=== PATIENT | male | born 1945 | race Caucasian/White ===

== ENCOUNTER 2018-09-18 15:55 | Inpatient (IN) | payer MEDICARE ==
[2018-09-18 16:39] LABS: #Eosinphils 0.1 thou/uL (0.0-0.7); #Lymphocytes 4.1 thou/uL (1.20-3.40); #Monocytes 0.8 thou/uL (0.11-0.59); #Neutrophils 4.2 thou/uL (1.40-6.50); %Basophils 0.4 % (0.0-1.0); %Eosinophils 0.9 % (0.0-10.0); %Lymphocytes 44.5 % (21.0-51.0); %Monocytes 8.7 % (0.0-10.0); %Neutrophils 45.6 % (42.0-75.0); Hemoglobin 18.1 g/dL (14.0-18.0); Mean Corpuscular HGB CONC 32.9 g/dL (32.0-36.0); Mean Corpuscular Volume 88.3 fL (78.0-98.0); Mean Platelet Volume 6.4 fL (7.4-10.4); Platelet Count 205 thou/uL (130-400); RBC Distribution Width 12.9 % (11.5-14.5); Red Blood Cell (RBC) Count 6.25 mill/uL (4.70-6.10); White Blood Cell (WBC) Count 9.2 thou/uL (4.8-10.8)
--- NOTE | 2018-09-18 16:39 | RAD ---
CHEST ONE VIEW: HISTORY: Chest pain. COMPARISON: None. FINDINGS: The cardiac silhouette is magnified by projection. The pulmonary vasculature is unremarkable. The m ediastinum is midline with postoperative changes. Calcified granulomata are consistent with healed g ranulomatous disease. No lobar consolidation or evidence of pneumothorax. Prominent degenerative ch anges, right shoulder. IMPRESSION: Chronic type fracture, as detailed above. No active cardiopulmonary abnormalities demonstrated. POS: [facility]
[2018-09-18] MEDS ORDERED: Adenosine 6 MG/2 ML VIAL ONE ×2 (16:43)
[2018-09-18] MEDS ORDERED: Diltiazem 125 MG/25 ML ONE ×2 (16:53→17:17)
[2018-09-18 17:05] LABS: ALT (SGPT) 21 U/L (8-55); AST (SGOT) 14 U/L (5-34); Albumin 4.5 g/dL (3.4-4.8); Alkaline Phosphatase 57 U/L (40-150); Anion Gap 19 mmol/L (10-20); BUN (Urea Nitrogen) 20 mg/dL (8.4-25.7); Bilirubin, Total 0.6 mg/dL (0.2-1.2); Calc. Creatinine Clearance 0 mL/min (70-130); Carbon Dioxide 21 mmol/L (23-31); Chloride 98 mmol/L (98-107); Estimated GFR-MDRD 61; Globulin 3.5 g/dL (2.4-3.5); Glucose 291 mg/dL (83-110); Lipase 53 U/L (8-78); Potassium 4.4 mmol/L (3.5-5.1); Sodium 134 mmol/L (136-145)
[2018-09-18 20:24] LABS: CKMB 2.1 ng/mL (0-6.6)
[2018-09-18] MEDS ORDERED: Acetaminophen 325 MG TAB PO PRN (21:42)
[2018-09-18] MEDS ORDERED: Ondansetron ODT 4 MG TAB PO PRN (21:42)
[2018-09-18] MEDS ORDERED: Ondansetron PF 4 MG/2 ML Vial IVP PRN (21:42)
[2018-09-19] MEDS ORDERED: Dextrose 50% Abboject 50 ML SYRINGE SLOW IVP PRN ×2 (02:12→15:19)
[2018-09-19] MEDS ORDERED: HumaLOG 300 UNITS/3 ML VIAL SC PRN (02:12)
[2018-09-19] MEDS ORDERED: Dextrose 5% in Water 1,000 ML IV PRN ×2 (02:12→15:19)
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
[2018-09-19] MEDS ORDERED: Diltiazem 125 MG/25 ML ONE (03:15)
[2018-09-19 04:11] LABS: #Basophils 0.1 thou/uL (0.0-0.2); #Eosinphils 0.1 thou/uL (0.0-0.7); #Lymphocytes 3.5 thou/uL (1.20-3.40); #Monocytes 0.9 thou/uL (0.11-0.59); #Neutrophils 3.8 thou/uL (1.40-6.50); %Eosinophils 0.9 % (0.0-10.0); %Lymphocytes 41.7 % (21.0-51.0); %Monocytes 10.3 % (0.0-10.0); %Neutrophils 46.1 % (42.0-75.0); Hemoglobin 16.8 g/dL (14.0-18.0); Mean Corpuscular Hemoglobin 29.2 pg (27.0-31.0); Mean Corpuscular Volume 88.4 fL (78.0-98.0); Mean Platelet Volume 6.5 fL (7.4-10.4); Platelet Count 202 thou/uL (130-400); RBC Distribution Width 12.9 % (11.5-14.5); Red Blood Cell (RBC) Count 5.75 mill/uL (4.70-6.10); White Blood Cell (WBC) Count 8.3 thou/uL (4.8-10.8)
[2018-09-19 04:27] LABS: Anion Gap 16 mmol/L (10-20); BUN (Urea Nitrogen) 19 mg/dL (8.4-25.7); Calc. Creatinine Clearance 0 mL/min (70-130); Carbon Dioxide 25 mmol/L (23-31); Chloride 99 mmol/L (98-107); Estimated GFR-MDRD 57; Glucose 359 mg/dL (83-110); Potassium 4.6 mmol/L (3.5-5.1); Sodium 135 mmol/L (136-145)
[2018-09-19] MEDS ORDERED: Digoxin 0.5 MG/2 ML AMP ONE (08:04)
[2018-09-19] MEDS ORDERED: Enoxaparin Sodium 40 MG/0.4 ML SYRINGE SC SCH (09:00)
[2018-09-19 09:50] VITALS: BMI 32.8
[2018-09-19] MEDS: Digoxin 0.5 MG/2 ML AMP SLOW IVP SCH ×2 (14:32→20:45)
--- NOTE | 2018-09-19 15:40 | PRG ---
DATE OF SERVICE: 09/19/2018 SUBJECTIVE: The patient is seen and examined at the bedside. He is feeling somewhat better. He still feels like his heart is fibrillating. He has some shortness of breath. OBJECTIVE: VITAL SIGNS: Blood pressure is 130/88, pulse is 117, temperature is 98.0, respiratory rate is 18, O2 saturation is 96% on room air. HEENT: His head is atraumatic and normocephalic. Eyes are PERRLA. Sclerae are nonicteric. Oral mucosa is moist. NECK: Supple. No lymphadenopathy. Thyroid is not palpable. LUNGS: Clear. HEART: S1, S2. Irregularly irregular. No S3. No S4. ABDOMEN: Soft, obese, nontender. Bowel sounds are present. No organomegaly. EXTREMITIES: No clubbing, cyanosis or edema. NEUROLOGIC: He is alert and oriented x4. There is no any motor or sensory deficits present. Cranial nerves are intact. LABORATORY DATA: Showed normal CBC. Sodium of 135, potassium 4.6, chloride 99, CO2 of 25, BUN 19, creatinine 1.24, glucose is 359, calcium 10. Two troponin I's at 0.045 and 0.103. IMPRESSION: 1. New onset atrial fibrillation with rapid ventricular response. The patient is on Cardizem at 12.5 mg/hour drip. I am starting him on digoxin 0.25 mg. He had one dose in the emergency room and will have 3 additional 0.125 mg IV push doses. Cardiology is consulted. I talked to Dr. Church personally. He is on his way to see the patient. 2. Uncontrolled diabetes mellitus type 2. 3. Hypertensive urgency on presentation, improved. 4. History of coronary artery disease, status post coronary artery bypass graft. PLAN: As I mentioned above, to continue his digoxin. Obtain Cardiology consultation. He does not want to be on any blood thinners. He has some bad experience in the past. He had some nosebleeds. I believe he was on Coumadin and some other anticoagulants before, so we will continue just DVT prophylaxis dose of Lovenox and we will continue his Cardizem drip and continue moderate sliding scale with insulin. Job ID: [id number]
[2018-09-19] MEDS: HumaLOG 300 UNITS/3 ML VIAL SC PRN (17:19)
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
[2018-09-19 19:26] LABS: ALT (SGPT) 18 U/L (8-55); AST (SGOT) 12 U/L (5-34); Albumin 4.1 g/dL (3.4-4.8); Alkaline Phosphatase 48 U/L (40-150); Bilirubin, Direct 0.2 mg/dL (0.1-0.3); Bilirubin, Total 0.8 mg/dL (0.2-1.2); Protein, Total 7.2 g/dL (5.8-8.1)
[2018-09-19] MEDS: Amiodarone 450 MG in Dextrose 5% in Water 250 ML IVPB SCH (19:28)
[2018-09-19] MEDS: Enoxaparin Sodium 120 MG/0.8 ML SYRINGE SC SCH (20:47)
[2018-09-20] MEDS: Digoxin 0.5 MG/2 ML AMP SLOW IVP SCH (02:13)
[2018-09-20] MEDS: Amiodarone 450 MG in Dextrose 5% in Water 250 ML IVPB SCH ×2 (02:58→19:57)
[2018-09-20 06:56] LABS: Cardiac Risk 8.2 (Less than 4.5)
[2018-09-20] MEDS: HumaLOG 300 UNITS/3 ML VIAL SC PRN ×4 (07:57→21:01)
[2018-09-20] MEDS: Enoxaparin Sodium 120 MG/0.8 ML SYRINGE SC SCH ×2 (07:59→20:57)
[2018-09-20 10:29] LABS: Hemoglobin A1c 11.5 % (4.0-6.0)
[2018-09-20] MEDS ORDERED: Insulin Glargine 15 UNITS in Pre-Filled Syringe 1 EACH SC SCH (10:45)
--- NOTE | 2018-09-20 13:23 | PRG ---
DATE OF SERVICE: 09/20/2018 SUBJECTIVE: The patient is seen and examined at the bedside. He is feeling better. He does not have much complaints to offer. OBJECTIVE: VITAL SIGNS: Blood pressure is 150/90, pulse is 84, temperature is 98.2, respiratory rate is 18, O2 saturation is 94% on room air. HEENT: His head is atraumatic and normocephalic. Eyes are PERRLA. Sclerae are nonicteric. Oral mucosa is moist. NECK: Supple. LUNGS: Clear. HEART: S1, S2. Irregularly irregular. No S3. No S4. ABDOMEN: Soft, obese, nontender. Bowel sounds are present. No organomegaly. EXTREMITIES: No clubbing, cyanosis. There is trace edema in both lower extremities. LABORATORY DATA: Labs showed glycemia ranging from 272 to 349. Hemoglobin A1c 11.5, triglycerides 244, cholesterol 230, LDL 153, HDL 28. Echocardiogram results showed LVEF of 60% to 65%, Afib during study, dilated RV with reduced RV systolic function, moderately dilated left atrium, mildly enlarged right atrium size. Mitral annular calcification, mild mitral regurgitation. Calcified aortic valve and reduced excursion. Hemodynamic measurements suggest hade-su-ltcwxtsl aortic valve stenosis, moderate tricuspid regurgitation. Elevated right ventricular systolic pressure estimated at 83% mmHg. IMPRESSION: 1. New onset atrial fibrillation with rapid ventricular response, rate controlled on Cardizem and amiodarone drips. Dr. Bal is seeing the patient. 2. Uncontrolled diabetes mellitus type 2. Hemoglobin A1c came back at more than 11. 3. Noncompliance. 4. Hypertensive urgency on presentation, improved. 5. History of coronary artery disease, status post coronary artery bypass graft. 6. Aortic stenosis. 7. Right ventricular failure of unclear etiology. We will obtain D-dimers and most likely V/Q scan to rule out the chronic thromboembolism and we might obtain Pulmonary consultation with Dr. Akbar who is interrelated special education teacher today. He is started on full dose of Lovenox at 110 mg every 12 hours subcutaneously and I am starting him on 15 units of long-acting insulin Lantus once a day, plus moderate sliding scale. Most likely he will need much for insulin to control his glycemia. He is ranging between 200 and 350 at this point. Job ID: [id number]
[2018-09-20] MEDS: Amiodarone 200 MG TAB PO SCH (20:58)
[2018-09-20] MEDS: Apixaban 5 MG TAB PO SCH (20:59)
[2018-09-20] MEDS: Atorvastatin Calcium 40 MG TAB PO SCH (20:59)
--- NOTE | 2018-09-21 09:42 | RAD ---
PA AND LATERAL CHEST RADIOGRAPH: Date: 09-21-18 History: Chest pain, worse with exertion. This exam was performed to accompany the ventilation perfus ion study. Comparison: 09-18-18 FINDINGS: Post-surgical changes related to CABG are again noted. Cardiac silhouette and pulmonary vasculature a re within normal limits. Again noted is evidence of prior granulomatous disease with scattered calcif ied granulomata seen within the lungs bilaterally. Lungs are otherwise clear. Vascular calcification is seen in the thoracic aorta. Chest is stable when compared to the prior exam. IMPRESSION: Stable chest without evidence of an acute cardiopulmonary process. POS: [facility]
--- NOTE | 2018-09-21 09:55 | NM ---
VENTILATION PERFUSION STUDY: Date: 09-21-18 History: Right heart failure. Chest pain which started on 09-17-18. Chest pain is now worse with exerti on. Radiopharmaceuticals: 8 mCi Xenon 133 gas inhaled and 6.4 mCi Technetium 99 labelled MAA, IV. FINDINGS: Ventilation Study: There is normal uptake and distribution of radiotracer throughout the lungs bilaterally on the ventil ation portion of the study. No ventilation defect is identified. There is normal washout present on w ashout imaging. The perfusion portion of the study demonstrates a large defect seen at the left lung base with subseg mental perfusion defect seen again scattered within the left lung base as well as defects in the late ral left lung base. The set perfusion defects represent ventilation perfusion mismatches and are comp atible with high probability for pulmonary embolus. Accompanying chest radiograph obtained on today's date demonstrates that the lungs are clear. IMPRESSION: High probability for pulmonary embolus. Above findings discussed with Dr. Schwarz on 09-21-18 at 10:34 hours. POS: [facility]
[2018-09-21] MEDS: Insulin Glargine 15 UNITS in Pre-Filled Syringe 1 EACH SC SCH ×2 (10:09→21:23)
[2018-09-21] MEDS: Apixaban 5 MG TAB PO SCH ×2 (10:10→21:24)
[2018-09-21] MEDS: Amiodarone 200 MG TAB PO SCH ×3 (10:11→21:24)
[2018-09-21] MEDS: HumaLOG 300 UNITS/3 ML VIAL SC PRN ×3 (11:59→21:31)
--- NOTE | 2018-09-21 12:12 | PRG ---
DATE OF SERVICE: 09/21/2018 SUBJECTIVE: The patient is seen and examined at the bedside. His sister is present in the room during my visit. He does not have much complaints to offer. OBJECTIVE: VITAL SIGNS: Blood pressure is 140/77, pulse is 89, temperature is 98.2, respiratory rate is 16, and O2 saturation is 97% on room air. HEENT: His head is atraumatic and normocephalic. Sclerae nonicteric. Oral mucosa is moist. NECK: Supple, obese. LUNGS: Clear. HEART: S1 and S2, irregularly irregular. No S3, no S4. ABDOMEN: Soft, nontender, nondistended. Obese. EXTREMITIES: No clubbing, cyanosis, or edema. NEUROLOGIC: No motor or sensory deficits. Cranial nerves are intact. LABORATORY DATA: Glycemia is ranging from 229 to 349. Hemoglobin A1c came back at 11.5 and D-dimers were 3.7. V/Q scan showed high probability for pulmonary embolism. IMPRESSION: 1. New onset atrial fibrillation with rapid ventricular response, rate controlled on Cardizem and amiodarone drips, started on apixaban 5 mg twice a day. 2. Pulmonary embolism. We will increase the dose of apixaban to 10 mg twice a day. 3. Uncontrolled diabetes mellitus type 2 with hemoglobin A1c at 11.5. The patient is started on 15 units of long-acting insulin Lantus along with the sliding scale moderate. 4. Aortic stenosis. 5. Right ventricular failure secondary to most likely pulmonary embolism with elevated D-dimers. V/Q scan was done and it showed pulmonary embolism. Parish Worker is called and he is supposed to have cardioversion done this evening. I am going to increase his insulin from 15 units once a day to 15 units twice a day. Job ID: [id number]
--- NOTE | 2018-09-21 13:08 | CON ---
DATE OF CONSULTATION: HISTORY OF PRESENT ILLNESS: Deandre Perez is a 73-year-old gentleman, who was admitted to the hospital with symptoms of palpitation and shortness of breath. He has some tightness in his chest. He was taking aspirin. Denies any fever or chills. He sees a physician out of [place], [place]. PAST MEDICAL HISTORY: Pertinent for diabetes, SVT previous pulmonary emboli, and DVT. CAD PAST SURGICAL HISTORY: Bypass, right knee surgery done. Then, he has been seen by Cardiology. Echocardiogram shows dilated RV, reduced RV systolic function, EF of 65%. A V/Q scan was ordered, which shows high probability pulmonary emboli. His echo also shows beqt-op-baitlnpn aortic stenosis. He has seen Dr. Owen in office in the past, but he is not come back to follow up. SOCIAL HISTORY: No alcohol or tobacco abuse. 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 HOME MEDICATIONS: Includes: 1. Metformin 500 twice a day. 2. Potassium 10 a day. 3. Aspirin one a day. 4. He is now on a Cardizem drip and Eliquis 10 mg twice a day. REVIEW OF SYSTEMS: Otherwise, 10-point negative. PHYSICAL EXAMINATION: VITAL SIGNS: Sats 97% on room air, respiratory rate 16, pulse 89, temperature 98, and blood pressure 140/77. CHEST: Decreased breath sounds without any wheezing. CARDIAC: Normal S1 and S2. No gallops. ABDOMEN: No masses. IMPRESSION: 1. Bilateral pulmonary emboli. 2. Supraventricular tachycardia. 3. Previous CABG. 4. Obesity. 5. Diabetes. 6. Atrial fibrillation. 7. Noncompliance. LABORATORY DATA: Order ultrasound of his leg. His creatinine is 1.24, on admission 1.17. GFR 57. Probably mild renal dysfunction. PLAN: I agree with Stuart. He is going to require lifelong anticoagulation. I would like to discuss with the patient. He understands. We will follow. This is a consultation note, 70 minutes, 50% direct patient care. Job ID: [id number] [facility]
[2018-09-21] MEDS ORDERED: PROPOFOL 40 ML ONE (13:44)
[2018-09-21] MEDS ORDERED: PROPOFOL 200 MG/20 ML VIAL ONE (14:19)
[2018-09-21] MEDS ORDERED: Lidocaine 1% PF 5 ML VIAL ONE (14:19)
--- NOTE | 2018-09-21 16:30 | PQF ---
STORM II,BESSY DEUTSCH MD [id number] [facility] [id number] CLINICAL DOCUMENTATION IMPROVEMENT CLARIFICATION FORM: ICD-10 Updated PLEASE DO AN ADDENDUM TO THE PROGRESS NOTE WITH ANY DOCUMENTATION UPDATES OR ADDITIONS AND CARRY THROUGH TO DC SUMMARY. THANK YOU. DATE: 09/21/2018 ATTN: DR. DOAN Please exercise your independent, professional judgment in responding to the clarification form. Clinical indicators are provided on the bottom of this form for your review Please check appropriate box(s).... AMI TYPE [ x ] NSTEMI due to Demand Ischemia (VT Type II) [ ] Demand Ischemia without VT [ ] NSTEMI [ ] Other diagnosis [ ] Unable to determine In addition, please specify: Present on Admission (POA): [ ] Yes [ ] No [ ] Unable to determine CLINICAL INDICATORS - SIGNS / SYMPTOMS / LABS Elevated biomarkers (CK-MB, Troponin T or I): 09/18@1931:0.045. 09/18@2217-0.103. EKG changes (ST Elevation, Non ST Elevation, Q waves, new LBB): EKG in ER: SVT and ST-T wave abnormality, consider inferolateral ischemia. Abnormal Echocardiogram: Juarez - Echo shows dilated RV, reduced RV systolic fuction, EF of 65%. Crushing, pressure like chest pain: ER - Palpitations and chest tightness with radiation of pain in his jaw. RISKS Hx Hypertension History of Coronary Artery Disease History of Diabetes History of VT TREATMENTS Cardizem and amlodipine drips Anticoagulation / TPA - Lovenox and Eliquis Continuous cardiac monitoring Cardiac consult Thank you, Guadalupe (This form is maintained as a part of the permanent medical record) 2014 [employer]. All Rights Reserved [email or web address]
--- NOTE | 2018-09-21 17:42 | PQF ---
STORM II,BESSY DEUTSCH MD [id number] [facility] [id number] CLINICAL DOCUMENTATION IMPROVEMENT CLARIFICATION FORM: ICD-10 Updated PLEASE DO AN ADDENDUM TO THE PROGRESS NOTE WITH ANY DOCUMENTATION UPDATES OR ADDITIONS AND CARRY THROUGH TO DC SUMMARY. THANK YOU. DATE: 09/21/2018 ATTN: DR. DOAN Please exercise your independent, professional judgment in responding to the clarification form. Clinical indicators are provided on the bottom of this form for your review Please check appropriate box(s): HEART FAILURE... A. TYPE: [ ] Systolic / HFrEF [ ] Diastolic / HFpEF [ ] Combined Systolic / Diastolic B. ACUITY: [ ] Acute [ ] Acute on Chronic [ ] Chronic [ x ] Other diagnosis ___Right-sided heart failure [ ] Unable to determine In addition, please specify: Present on Admission (POA): [ x ] Yes [ ] No [ ] Unable to determine For continuity of documentation, please document condition throughout progress notes and discharge summary. Thank You. CLINICAL INDICATORS - SIGNS / SYMPTOMS / LABS 09/19-H&P-KEYON: START ON CARDIZEM GTT. ON TELE. 1-AFIB WITH RVR. THIS IS THE FIRST TIME THE PT HAS HAD AFIB. 2-NSTEMI. LIKELY NSTEMI TYPE 2. TROP 0.045 AND 0.103 REPEATED. LIKELY 2/2 TACHYARRHYTHMIA. 3-HYPERTENSIVE URGENCY. 09/20-CHM: RIGHT VENTRICULAR FAILURE OF UNCLEAR ETIOLOGY. WILL GET D-DIMER AND VQ SCAN. 09/21-SCHWAB: ADMITTED FOR PALPITATIONS AND SHORTNESS OF BREATH. ECHO SHOWS DILATED RV, REDUCED RV SYSTOLIC FUNCTION, EF OF 65%. 09/21-CHM: NEW ONSET AFIB WITH RR. PULM EMBOLISM. RIGHT VENTRICULAR FAILURE 2/2 MOST LIKELY PULM EMBOLISM. RISKS History of CAD with Bypass Hypertension TREATMENTS Cardizem and Eliquis Cardiac monitoring / telemetry IV diuretics Cardiology Consult Thank you, Guadalupe (This form is maintained as a part of the permanent medical record) 2014 [employer]. All Rights Reserved Guadalupe Gardner RN, CDIS [phone] [facility]
--- NOTE | 2018-09-21 18:37 | ECHO ---
73-year-old gentleman with paroxysmal atrial fibrillation. DESCRIPTION OF PROCEDURE: The patient was taken to the PACU. The patient was sedated by anesthesiology. A transesophageal pro be was placed into the distal esophagus and stomach. Echocardiographic images were obtained. The tr ansesophageal probe was removed. FINDINGS: 1. Normal left ventricular systolic function. 2. Biatrial enlargement. 3. The aortic valve leaflets are thickened with reduced leaflet excursion suggestive of mild to mode rate aortic stenosis. 4. Mild mitral regurgitation. 5. Mild tricuspid regurgitation. 6. Spontaneous contrast noted in the left atrium and left atrial appendage. 7. No thrombus in atrium or left atrial appendage. 9. Atherosclerotic debris in the descending aorta. IMPRESSION: Spontaneous contrast was noted in the left atrium and left atrial appendage without formed thrombus.
--- NOTE | 2018-09-21 19:50 | ULT ---
ULTRASOUND WITH DOPPLER DUPLEX VENOUS LOWER EXTREMITIES BILATERAL: 09/21/18 HISTORY: 73-year-old male with pulmonary thromboembolism. 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 FINDINGS: There is no DVT in the right lower extremity. In the left lower extremity, there is clot that fills and expands the lumen of the proximal portion o f the femoral vein, and continues through the mid portion of the femoral vein, with very little flow in the lumen. The distal portion of the femoral vein is patent and clear. IMPRESSION: Positive for occlusive or almost occlusive, acute deep venous thrombosis of the proximal and mid port ions of the left femoral vein. SANDRO Saez POS: JIN
[2018-09-21] MEDS: Atorvastatin Calcium 40 MG TAB PO SCH (21:24)
[2018-09-22 05:33] LABS: Hemoglobin 14.9 g/dL (14.0-18.0); Platelet Count 199 thou/uL (130-400)
[2018-09-22] MEDS: Insulin Glargine 15 UNITS in Pre-Filled Syringe 1 EACH SC SCH ×2 (08:33→21:23)
[2018-09-22] MEDS: Apixaban 5 MG TAB PO SCH ×2 (08:34→21:16)
[2018-09-22] MEDS: Amiodarone 200 MG TAB PO SCH ×3 (08:34→21:17)
--- NOTE | 2018-09-22 10:14 | PDOC.PN ---
- Subjective Encounter Start Date: 09/22/18 Encounter Start Time: 10:13 Subjective: Seen and examined with noo new complaint - Objective Resuscitation Status - Order Detail: 09/18/18 21:42 Resuscitation Status Routine Resuscitation Status: FULL: Full Resuscitation Vital Signs & Weight: Vital Signs (12 hours) Temp Pulse Resp BP BP Pulse Ox 09/22/18 07:40 98.1 F 65 15 141/78 H 96 09/22/18 04:00 98.7 F 62 18 141/67 H 95 09/22/18 00:00 61 158/73 H Weight Weight 253 lb 3.2 oz I&O: 09/21/18 09/22/18 09/23/18 06:59 06:59 07:59 Intake Total 2835.4 1177 Output Total 2500 1065 Balance 335.4 112 Result Diagrams: 09/22/18 05:12 09/22/18 05:12 Additional Labs: Accuchecks 09/22/18 09/21/18 09/21/18 06:02 20:26 16:34 POC Glucose 181 H 413 H 217 H 09/21/18 09/21/18 12:40 10:52 POC Glucose 262 H 271 H Phys Exam - Physical Examination Constitutional: NAD HEENT: PERRLA, moist MMs, sclera anicteric, TM's clear Neck: no nodes, no JVD, supple, full ROM Respiratory: no wheezing, no rales, no rhonchi, clear to auscultation bilateral Cardiovascular: RRR, no significant murmur, no rub Gastrointestinal: soft, non-tender, no distention, positive bowel sounds Musculoskeletal: no edema, pulses present Dx/Plan (1) Afib Code(s): I48.91 - UNSPECIFIED ATRIAL FIBRILLATION Status: Acute (2) Diabetes mellitus Code(s): E11.9 - TYPE 2 DIABETES MELLITUS WITHOUT COMPLICATIONS Status: Acute (3) Right heart failure Status: Acute (4) Bilateral pulmonary embolism Code(s): I26.99 - OTHER PULMONARY EMBOLISM WITHOUT ACUTE COR PULMONALE Status : Acute - Plan 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
--- NOTE | 2018-09-22 12:30 | PRG ---
DATE OF SERVICE: 09/22/2018 SUBJECTIVE: This morning said, he is feeling better. Less shortness of breath. His ultrasound of his legs shows acute deep venous thrombosis involving his proximal midportion of his left femoral vein. OBJECTIVE: VITAL SIGNS: Blood pressure 141/78, sats 98% on room air, respiratory rate 15, temperature 98, and pulse 65. CHEST: Decreased breath sounds. No wheezing. CARDIAC: Normal S1 and S2. No gallops. ABDOMEN: No masses. IMPRESSION: Pulmonary embolism, deep venous thrombosis, atrial fibrillation. From pulmonary standpoint of view, he is on Eliquis. He is going to require lifelong anticoagulation. Continue aggressive PT. Job ID: [id number]
[2018-09-22] MEDS: HumaLOG 300 UNITS/3 ML VIAL SC PRN ×2 (13:39→17:09)
--- NOTE | 2018-09-22 17:13 | PDOC.CTH ---
Cardiology Progress Note - Subjective No complaints. No overnight events. - Objective Vital Signs Temp Pulse Resp BP BP Pulse Ox 09/22/18 15:35 98.9 F 67 15 158/70 H 96 09/22/18 11:15 98.0 F 63 16 145/67 H 96 09/22/18 07:40 98.1 F 65 15 141/78 H 96 Weight 253 lb 3.2 oz 09/21/18 09/22/18 09/23/18 06:59 06:59 07:59 Intake Total 2835.4 1177 Output Total 2500 1065 Balance 335.4 112 - Physical Examination General/Neuro: alert & oriented x3 Neck: no JVD present Lungs: CTA Heart: RRR Abdomen: NT/ND Extremities: other: (Trace edema) - Telemetry Telemetry Rhythm: SR - Labs Result Diagrams: 09/22/18 05:12 09/22/18 05:12 Troponin/CKMB CK-MB (CK-2) 2.1 ng/mL (0-6.6) 09/18/18 19:31 Troponin I 0.103 ng/mL (< 0.028) H 09/18/18 22:17 - Assessment/Plan 1. Paroxysmal AF s/p DCCV 2. PE 3. Left femoral DVT 4. CAD s/p CABG x 2010 5. HLD 6. DM-II 7. Noncompliance history 8. History of junctional rhythm (Amio decreased and no further) Stable. Cleared for discharge from my standpoint. Continue Eliquis lifelong. 10mg BID for 7 days and then 5mg BID.
[2018-09-22] MEDS ORDERED: Clopidogrel Bisulfate 75 MG TAB ONE (20:52)
[2018-09-22] MEDS: Atorvastatin Calcium 40 MG TAB PO SCH (21:16)
[2018-09-23] MEDS ORDERED: Losartan 25 MG TAB PO SCH (09:00)
[2018-09-23] MEDS: Amiodarone 200 MG TAB PO SCH ×2 (09:33→15:33)
[2018-09-23] MEDS: Apixaban 5 MG TAB PO SCH (09:33)
[2018-09-23] MEDS: HumaLOG 300 UNITS/3 ML VIAL SC PRN ×2 (09:34→11:58)
[2018-09-23] MEDS: Insulin Glargine 15 UNITS in Pre-Filled Syringe 1 EACH SC SCH (09:34)
[2018-09-23 12:45] VITALS: BP 166/83; TEMP 98.4
--- NOTE | 2018-09-23 12:53 | PRG ---
DATE OF SERVICE: 09/23/2018 SUBJECTIVE: This morning, the patient is awake, alert, and responsive. Less short of breath. He is walking in the halls. OBJECTIVE: VITAL SIGNS: Sats 100% on room air, temperature 98, pulse 80, respiratory rate 20, blood pressure 140/95. CHEST: Decreased breath sounds. No wheezing. CARDIAC: Normal S1, S2. No gallops or masses. ASSESSMENT AND PLAN: Pulmonary embolism, deep venous thrombosis, atrial fibrillation. From pulmonary standpoint of view, he can be discharged home any time on Eliquis. As noted before, he is going to require long-term anticoagulation. Job ID: [id number]
--- NOTE | 2018-09-23 13:34 | PDOC.PN ---
- Subjective Encounter Start Date: 09/23/18 Encounter Start Time: 13:32 Patient seen and examined. No new complaints. No overnight events. feeling good and wants to go home. - Objective Resuscitation Status - Order Detail: 09/18/18 21:42 Resuscitation Status Routine Resuscitation Status: FULL: Full Resuscitation MAR Reviewed: Yes Vital Signs & Weight: Vital Signs (12 hours) Temp Pulse Resp BP BP Pulse Ox 09/23/18 11:15 98.4 F 72 16 166/83 H 97 09/23/18 09:30 100 09/23/18 07:40 98.1 F 81 20 140/95 H 100 09/23/18 03:36 98.3 F 72 18 143/68 H 96 Weight Weight 253 lb 14.4 oz I&O: 09/22/18 09/23/18 09/24/18 05:59 06:59 06:59 Intake Total 240 Output Total Balance 240 Result Diagrams: 09/22/18 05:12 09/22/18 05:12 Additional Labs: Accuchecks 09/23/18 09/23/18 09/22/18 11:21 05:41 20:15 POC Glucose 167 H 162 H 209 H 09/22/18 09/22/18 16:38 11:17 POC Glucose 257 H 285 H Phys Exam - Physical Examination Constitutional: NAD HEENT: sclera anicteric Neck: supple Respiratory: no wheezing, no rales Cardiovascular: no significant murmur Gastrointestinal: soft Musculoskeletal: no edema Neurological: non-focal, moves all 4 limbs Psychiatric: normal affect, A&O x 3 Skin: no rash Dx/Plan (1) Afib Code(s): I48.91 - UNSPECIFIED ATRIAL FIBRILLATION Status: Acute (2) Diabetes mellitus Code(s): E11.9 - TYPE 2 DIABETES MELLITUS WITHOUT COMPLICATIONS Status: Acute (3) Right heart failure Status: Acute (4) Bilateral pulmonary embolism Code(s): I26.99 - OTHER PULMONARY EMBOLISM WITHOUT ACUTE COR PULMONALE Status : Acute (5) Chest pain Code(s): R07.9 - CHEST PAIN, UNSPECIFIED Status: Acute - Plan * . DC home today Counseled on anticoagulation. Fall precautions at home.
--- NOTE | 2018-09-24 05:59 | DIS ---
DATE OF ADMISSION: 09/18/2018 DATE OF DISCHARGE: 09/23/2018 CONSULTS: Jere Bal MD; Kvng Whyte MD, Cardiology; Paul Juarez MD, Pulmonology. PROCEDURES PERFORMED: 1. Transthoracic echocardiogram with an ejection fraction of 60% to 65%, dilated RV and dilated left atrium, elevated right ventricular systolic pressure of 83 mmHg. 2. Transient esophageal echocardiogram by Dr. Arora on 09/21/2018, showed a normal LV systolic function with biatrial enlargement. HOSPITAL COURSE: Please refer to the history and physical for detail. The patient was admitted with chest pain and palpitation, was found to be in atrial fibrillation and had cardioversion done, was started on blood thinner and amiodarone, rate was controlled and patient was feeling better. He was evaluated by Pulmonology and Cardiology and was deemed appropriated for discharge and has been discharged. The patient remained asymptomatic during the admission. DISCHARGE DIAGNOSES: 1. Paroxysmal atrial fibrillation, status post recurrent cardioversion. 2. Pulmonary embolism. 3. Left femoral deep venous thrombosis. 4. Coronary artery disease, status post coronary artery bypass graft x3 in 2010. 5. Hyperlipidemia. 6. Type 2 diabetes. 7. History of junctional rhythm. 8. Noncompliance from history of hypertension. DISCHARGE MEDICATIONS: 1. Metformin 500 mg p.o. b.i.d. 2. Losartan 25 mg p.o. daily. 3. Lipitor 40 mg at bedtime. 4. Eliquis 10 mg p.o. b.i.d. for 7 days and 5 mg p.o. b.i.d. lifelong. 5. Amiodarone 200 mg p.o. t.i.d. ALLERGIES: NO KNOWN DRUG ALLERGIES. CONDITION ON DISCHARGE: Stable. DISPOSITION: Home. DISCHARGE FOLLOWUP: Follow up with his primary care physician in 1 to 2 weeks. The patient was given no prescriptions and was advised to follow up with primary care physician in 1 to 2 weeks. All of the questions were answered. TIME SPENT: Please note that I did spend more than 35 minutes coordinating the discharge care of this patient. Please check my progress note on 09/23/2018 for physical examination during the day of discharge. Job ID: [id number]
--- NOTE | 2018-09-25 09:40 | EKG ---
Test Reason : POST CARDIOVERSION Blood Pressure : / mmHG Vent. Rate : 058 BPM Atrial Rate : 028 BPM P-R Int : 000 ms QRS Dur : 100 ms QT Int : 398 ms P-R-T Axes : 000 069 210 degrees QTc Int : 390 ms Normal sinus rhythm with junctional escape T wave abnormality, consider inferior ischemia T wave abnormality, consider anterolateral ischemia Abnormal ECG Confirmed by LINNETTE COATES ([id number]) on 09/25/2018 9:39:45 AM Referred By: EUGENIE Confirmed By:LINNETTE COATES
== END 2018-09-23 16:18 | disposition home or self-care (01) | DRG 280 ==
LOC: ERS 15:55 → ERHOLD 17:34 → MERGE 17:34 → 2NO 09-19 09:26
PROVIDERS: ADMIT Emergency Medicine; ATTEND Emergency Medicine
PROC: B24BZZ4 Ultrasonography of Heart with Aorta, Transesophageal (ICD-10-PCS; principal; 2018-09-21)
DX: I48.0 Paroxysmal atrial fibrillation (principal); I26.99 Other pulmonary embolism without acute cor pulmonale; I21.A1 Myocardial infarction type 2; I82.412 Acute embolism and thrombosis of left femoral vein; I35.0 Nonrheumatic aortic (valve) stenosis; I16.0 Hypertensive urgency; E11.65 Type 2 diabetes mellitus with hyperglycemia; I25.10 Atherosclerotic heart disease of native coronary artery without angina pectoris; E78.00 Pure hypercholesterolemia, unspecified; I47.1 Supraventricular tachycardia; E66.9 Obesity, unspecified; Z68.33 Body mass index [BMI] 33.0-33.9, adult; Z79.84 Long term (current) use of oral hypoglycemic drugs; Z95.1 Presence of aortocoronary bypass graft; Z79.82 Long term (current) use of aspirin; I11.0 Hypertensive heart disease with heart failure; Z87.891 Personal history of nicotine dependence; I50.811 Acute right heart failure; I25.2 Old myocardial infarction; Z91.19 Patient's noncompliance with other medical treatment and regimen; Z79.01 Long term (current) use of anticoagulants
CPT/HCPCS: 36415; 36416; 71045; 71046; 78582; 80048; 80053; 80061; 80076; 82553; 82565; 83036; 83690; 83735; 84443; 84484; 85014; 85018; 85025; 85049; 85379; 92960; 93005; 93010; 93306; 93312; 93970; 96365; 96366; 96375; 96376; A9540; A9558; J0153; J1160; J1650; J1825; J2001; J2704; J7050; J7070

== ENCOUNTER 2019-03-27 05:57 | Inpatient (IN) | payer MEDICARE ==
[2019-03-27] MEDS ORDERED: Aspirin Chewable 81 MG TAB ONE (06:09)
[2019-03-27] MEDS ORDERED: Lidocaine 1% (PF) 30 ML VIAL ONE (06:18)
[2019-03-27 06:26] LABS: #Basophils 0.1 thou/uL (0.0-0.2); #Eosinphils 0.1 thou/uL (0.0-0.7); #Lymphocytes 3.2 thou/uL (1.20-3.40); #Monocytes 0.5 thou/uL (0.11-0.59); #Neutrophils 3.3 thou/uL (1.40-6.50); %Basophils 0.8 % (0.0-1.0); %Eosinophils 0.8 % (0.0-10.0); %Lymphocytes 45.3 % (21.0-51.0); %Monocytes 7.4 % (0.0-10.0); %Neutrophils 45.7 % (42.0-75.0); Hemoglobin 16.9 g/dL (14.0-18.0); Mean Corpuscular HGB CONC 33.1 g/dL (32.0-36.0); Mean Corpuscular Volume 87.6 fL (78.0-98.0); Mean Platelet Volume 5.9 fL (7.4-10.4); Platelet Count 219 thou/uL (130-400); Red Blood Cell (RBC) Count 5.82 mill/uL (4.70-6.10); White Blood Cell (WBC) Count 7.1 thou/uL (4.8-10.8)
[2019-03-27 06:34] LABS: INR-International Normal Ratio 1.8; PTT 47.9 SEC (22.9-36.1); Prothrombin Time 20.8 SEC (12.0-14.7)
[2019-03-27 06:50] LABS: ALT (SGPT) 13 U/L (8-55); AST (SGOT) 10 U/L (5-34); Albumin 4.7 g/dL (3.4-4.8); Alkaline Phosphatase 36 U/L (40-150); Anion Gap 13 mmol/L (10-20); BUN (Urea Nitrogen) 19 mg/dL (8.4-25.7); Bilirubin, Total 0.9 mg/dL (0.2-1.2); Calc. Creatinine Clearance 0 mL/min (70-130); Carbon Dioxide 30 mmol/L (23-31); Chloride 96 mmol/L (98-107); Estimated GFR-MDRD 52; Globulin 2.9 g/dL (2.4-3.5); Glucose 251 mg/dL (83-110); Potassium 4.2 mmol/L (3.5-5.1); Protein, Total 7.6 g/dL (5.8-8.1); Sodium 135 mmol/L (136-145)
[2019-03-27] MEDS ORDERED: Heparin 10,000 UNITS/1 ML VIAL ONE (07:31)
[2019-03-27] MEDS ORDERED: Atropine Sulfate 1 mg/1 ml Vial ONE (07:31)
[2019-03-27] MEDS ORDERED: Atropine Sulfate 1 mg/10 ml Syringe ONE ×2 (07:32→08:37)
[2019-03-27] MEDS ORDERED: Bivalirudin 250 MG VIAL ONE (07:33)
[2019-03-27] MEDS ORDERED: Aggrastat 12.5 MG/250 ML 250 ML ONE (07:34)
[2019-03-27] MEDS ORDERED: Adenosine 6 MG/2 ML VIAL ONE (08:25)
[2019-03-27] MEDS ORDERED: Verapamil 5 MG/2 ML VIAL ONE (08:25)
[2019-03-27] MEDS ORDERED: Heparin 10,000 UNITS/ 10 ML VIAL ONE (09:00)
--- NOTE | 2019-03-27 09:14 | RAD ---
CHEST 1 VIEW PORTABLE: HISTORY: Chest pain. COMPARISON: 09/21/2018. FINDINGS: Postop midline sternotomy. Old granulomatous disease. No confluent pneumonia, overt edema, or other acute process. IMPRESSION: No acute intrathoracic disease. Old granulomatous disease. POS: [facility]
[2019-03-27] MEDS ORDERED: Morphine 2 MG/ML SYRINGE SLOW IVP PRN (09:40)
[2019-03-27] MEDS ORDERED: HYDROcodone/Acetaminophen 5/325 mg Tablet PO PRN (09:40)
[2019-03-27] MEDS ORDERED: Nitroglycerin 0.4 MG TAB (25 Tab Bottle) SL PRN ×2 (09:40)
[2019-03-27] MEDS ORDERED: Aggrastat 12.5 MG/250 ML 250 ML IVPB SCH (09:45)
[2019-03-27 10:21] LABS: #Lymphocytes 1.5 thou/uL (1.20-3.40); #Monocytes 0.3 thou/uL (0.11-0.59); #Neutrophils 5.6 thou/uL (1.40-6.50); %Basophils 0.6 % (0.0-1.0); %Eosinophils 0.2 % (0.0-10.0); %Lymphocytes 19.9 % (21.0-51.0); %Monocytes 4.5 % (0.0-10.0); %Neutrophils 74.8 % (42.0-75.0); Hemoglobin 16.1 g/dL (14.0-18.0); Mean Corpuscular HGB CONC 34.1 g/dL (32.0-36.0); Mean Corpuscular Hemoglobin 29.4 pg (27.0-31.0); Mean Corpuscular Volume 86.4 fL (78.0-98.0); Mean Platelet Volume 6.1 fL (7.4-10.4); Platelet Count 195 thou/uL (130-400); RBC Distribution Width 12.8 % (11.5-14.5); Red Blood Cell (RBC) Count 5.47 mill/uL (4.70-6.10); White Blood Cell (WBC) Count 7.5 thou/uL (4.8-10.8)
[2019-03-27 10:30] VITALS: BMI 34.7
[2019-03-27] MEDS ORDERED: Iopamidol 370 76% 100 ML VIAL ONE (10:34)
[2019-03-27] MEDS ORDERED: Iopamidol 370 76% 50 ML VIAL FS ONE (10:34)
[2019-03-27] MEDS: Aspirin Chewable 81 MG TAB PO SCH ×2 (10:49→10:50)
[2019-03-27 10:54] LABS: Troponin I 4.716 ng/mL (< 0.028)
--- NOTE | 2019-03-27 11:54 | RAD ---
PORTABLE SUPINE CHEST: Date: 03/27/19 HISTORY: Cardiac device placement. COMPARISON: 03/27/19. FINDINGS: Mild cardiomegaly with postop sternotomy change. Lungs appear clear. A catheter overlies with IVC and right atrium with tip overlying the right ventricle. IMPRESSION: No evidence of acute lung process. Stable chest findings. POS: OFF
[2019-03-27 13:45] LABS: Troponin I 15.534 ng/mL (< 0.028)
[2019-03-27] MEDS ORDERED: Dextrose 5% in Water 1,000 ML IV PRN (14:41)
[2019-03-27] MEDS ORDERED: Dextrose 50% Abboject 50 ML SYRINGE IVP PRN (14:41)
[2019-03-27 17:26] LABS: Troponin I 26.551 ng/mL (< 0.028)
[2019-03-27] MEDS: Ondansetron PF 4 MG/2 ML Vial SLOW IVP PRN ×2 (18:15→22:39)
[2019-03-27] MEDS: TICAGRELOR 90 MG TABLET PO SCH (20:44)
[2019-03-27] MEDS: Insulin Regular 300 UNITS/3 ML VIAL SC PRN (20:49)
[2019-03-27] MEDS ORDERED: TICAGRELOR 90 MG TABLET PO SCH (21:00)
[2019-03-27] MEDS ORDERED: Atorvastatin Calcium 40 MG TAB PO SCH (21:00)
[2019-03-28 04:18] LABS: #Lymphocytes 2.8 thou/uL (1.20-3.40); #Monocytes 0.7 thou/uL (0.11-0.59); #Neutrophils 5.5 thou/uL (1.40-6.50); %Basophils 0.4 % (0.0-1.0); %Eosinophils 0.3 % (0.0-10.0); %Lymphocytes 30.7 % (21.0-51.0); %Monocytes 7.9 % (0.0-10.0); %Neutrophils 60.6 % (42.0-75.0); Hemoglobin 15.9 g/dL (14.0-18.0); Mean Corpuscular HGB CONC 33.5 g/dL (32.0-36.0); Mean Corpuscular Hemoglobin 29.4 pg (27.0-31.0); Mean Corpuscular Volume 87.8 fL (78.0-98.0); Mean Platelet Volume 6.3 fL (7.4-10.4); Platelet Count 187 thou/uL (130-400); RBC Distribution Width 13.1 % (11.5-14.5); Red Blood Cell (RBC) Count 5.39 mill/uL (4.70-6.10); White Blood Cell (WBC) Count 9.1 thou/uL (4.8-10.8)
[2019-03-28 05:34] LABS: Albumin 3.9 g/dL (3.4-4.8)
[2019-03-28 05:35] LABS: Calcium 8.9 mg/dL (7.8-10.44); Chloride 100 mmol/L (98-107); Potassium 3.9 mmol/L (3.5-5.1); Sodium 133 mmol/L (136-145)
[2019-03-28 05:36] LABS: Globulin 2.3 g/dL (2.4-3.5); Glucose 202 mg/dL (83-110); Protein, Total 6.2 g/dL (5.8-8.1); Triglycerides 156 mg/dL (Less than 150)
[2019-03-28 05:37] LABS: Anion Gap 12 mmol/L (10-20); Carbon Dioxide 25 mmol/L (23-31)
[2019-03-28 05:38] LABS: Bilirubin, Total 1.3 mg/dL (0.2-1.2)
[2019-03-28 05:39] LABS: Alkaline Phosphatase 32 U/L (40-150); Calc. Creatinine Clearance 111 mL/min (70-130); Estimated GFR-MDRD 73
[2019-03-28 05:40] LABS: BUN (Urea Nitrogen) 14 mg/dL (8.4-25.7)
[2019-03-28 05:41] LABS: AST (SGOT) 91 U/L (5-34); Cholesterol 226 mg/dl (< 200 Desired); HDL Cholesterol 32 mg/dL (>60 Neg Risk); LDL Cholesterol, Calculated 163 mg/dL
[2019-03-28] MEDS: Insulin Regular 300 UNITS/3 ML VIAL SC PRN ×3 (05:41→19:54)
[2019-03-28 05:42] LABS: ALT (SGPT) 22 U/L (8-55); Cardiac Risk 7.1 (Less than 4.5)
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
[2019-03-28] MEDS: Aspirin 81 mg Enteric Coated Tablet PO SCH (09:32)
[2019-03-28] MEDS: Lisinopril 5 MG TAB PO SCH (09:32)
[2019-03-28] MEDS ORDERED: Dextrose 5% in Water 1,000 ML IV PRN (09:36)
[2019-03-28] MEDS: Ondansetron PF 4 MG/2 ML Vial SLOW IVP PRN (09:54)
[2019-03-28] MEDS: TICAGRELOR 90 MG TABLET PO SCH ×2 (10:22→19:53)
[2019-03-28] MEDS: Propafenone HCl 150 MG TAB PO SCH ×2 (15:38→21:03)
[2019-03-28] MEDS: Warfarin Sodium 10 MG TAB PO SCH (16:22)
--- NOTE | 2019-03-28 17:03 | EKG ---
Test Reason : S/P STENTS Blood Pressure : / mmHG Vent. Rate : 092 BPM Atrial Rate : 068 BPM P-R Int : 000 ms QRS Dur : 090 ms QT Int : 366 ms P-R-T Axes : 000 039 266 degrees QTc Int : 452 ms Demand pacemaker; interpretation is based on intrinsic rhythm with some spontaneous beats Inferior infarct (cited on or before 27-MAR-2019) Abnormal ECG When compared with ECG of 27-MAR-2019 06:08, (Unconfirmed) Atrial fibrillation has replaced Sinus rhythm Serial changes of evolving Inferior infarct Present Confirmed by DR. Charley KELLY ([id number]) on 03/28/2019 5:02:53 PM Referred By: ROSALIA Confirmed By:DR. Charley KELLY
--- NOTE | 2019-03-28 17:08 | EKG ---
Test Reason : Blood Pressure : / mmHG Vent. Rate : 084 BPM Atrial Rate : 022 BPM P-R Int : 000 ms QRS Dur : 088 ms QT Int : 396 ms P-R-T Axes : 000 012 261 degrees QTc Int : 467 ms Ventricular-paced rhythm with some spontaneous beats inferior VA Abnormal ECG When compared with ECG of 27-MAR-2019 14:40, (Unconfirmed) Electronic ventricular pacemaker has replaced Atrial fibrillation Confirmed by DR. Charley KELLY ([id number]) on 03/28/2019 5:07:51 PM Referred By: ROSALIA Confirmed By:DR. Charley KELLY
--- NOTE | 2019-03-28 19:30 | PDOC.HOSPP ---
- Subjective Encounter Date: 03/28/19 Encounter Time: 10:30 Subjective: Patient seen and examined for medical mngt. No CP or SOB. No new complaints. No overnight events - Objective Vital Signs & Weight: Vital Signs (12 hours) Temp Pulse BP Pulse Ox 03/28/19 19:00 98.6 F 03/28/19 16:00 98.9 F 03/28/19 12:00 97.9 F 03/28/19 09:32 80 129/62 03/28/19 08:00 98.9 F 94 L Weight Weight 261 lb 14.546 oz Most Recent Monitor Data Heart Rate from ECG 79 NIBP 117/80 NIBP BP-Mean 92 Respiration from ECG 17 SpO2 97 I&O: 03/27/19 03/28/19 03/29/19 06:59 06:59 06:59 Intake Total 772 1417 Output Total 1965 1200 Balance -1193 217 Result Diagrams: 03/28/19 04:00 03/28/19 05:00 Additional Labs: Accuchecks 03/28/19 03/27/19 15:30 20:45 POC Glucose 234 H 192 H EKG Reviewed by me: Yes (Tele Afib) Hospitalist ROS - Review of Systems Cardiovascular: denies: chest pain, palpitations, orthopnea, paroxysmal noc. dyspnea, edema, light headedness, other Gastrointestinal: denies: nausea, vomiting, abdominal pain, diarrhea, constipation, melena, hematochezia, other - Medication Medications: Active Medications Generic Name Dose Route Start Last Admin Trade Name Freq PRN Reason Stop Dose Admin Hydrocodone Bitart/Acetaminophen 1 tab 03/27/19 09:40 03/27/19 20:50 [place] 5/325 PO 1 tab Q4H PRN Administration Mild Pain (1-3) Aspirin 81 mg 03/28/19 09:00 03/28/19 09:32 Ecotrin PO 81 mg DAILY CECILIA Administration Tirofiban/Sodium Chloride 250 mls @ 0 mls/hr 03/27/19 09:45 03/27/19 20:44 Aggrastat 12.5 Mg/250 Ml IVPB 250 mls INF CECILIA Administration Protocol As Directed Insulin Human Regular 0 units 03/27/19 14:41 03/28/19 15:38 Humulin R SC 4 unit .MODERATE SLIDING SC PRN Administration MODERATE SLIDING SCALE Protocol Lisinopril 5 mg 03/28/19 09:00 03/28/19 09:32 Zestril PO 5 mg DAILY CECILIA Administration Morphine Sulfate 2 mg 03/27/19 09:40 03/27/19 18:18 Morphine SLOW IVP 2 mg Q4H PRN Administration Moderate Chest Pain (4-6) Ondansetron HCl 4 mg 03/27/19 18:10 03/28/19 09:54 Zofran SLOW IVP 4 mg Q6H PRN Administration Nausea Propafenone HCl 150 mg 03/28/19 14:00 03/28/19 15:38 Rythmol PO 150 mg Q8HR CECILIA Administration Ticagrelor 90 mg 03/27/19 21:00 03/28/19 10:22 Brilinta PO 90 mg BID CECILIA Administration Warfarin Sodium 10 mg 03/28/19 17:00 03/28/19 16:22 Coumadin PO 10 mg 1700 CECILIA Administration - Exam General Appearance: NAD Neck: supple, no JVD Heart: RRR, no gallops Respiratory: CTAB, no wheezes, no rales, no ronchi Gastrointestinal: soft, non-tender, non-distended, normal bowel sounds Neurological: no new deficit Psychiatric: normal affect, A&O x 3 Hosp A/P (1) DM2 (diabetes mellitus, type 2) Status: Chronic Qualifiers: Chronic kidney disease stage: stage 2 (mild) (2) Dyslipidemia Code(s): E78.5 - HYPERLIPIDEMIA, UNSPECIFIED Status: Chronic (3) Chronic a-fib Code(s): I48.2 - CHRONIC ATRIAL FIBRILLATION Status: Chronic (4) Obesity (BMI 30.0-34.9) Code(s): E66.9 - OBESITY, UNSPECIFIED Status: Chronic (5) HTN (hypertension) Code(s): I10 - ESSENTIAL (PRIMARY) HYPERTENSION Status: Chronic - Plan Cont moderate sliding scale - ACHS Hold Metformin Warfarin restated AM labs Will follow. Full code. DPOA - spouse
[2019-03-28] MEDS: Rosuvastatin 20 MG TAB PO SCH (19:53)
[2019-03-28] MEDS: Ubidecarenone 50 MG CAP PO SCH (19:53)
[2019-03-28] MEDS ORDERED: Calcium Carbonate 500 MG ChewTAB PO PRN (21:10)
[2019-03-29] MEDS: Propafenone HCl 150 MG TAB PO SCH ×3 (05:06→21:03)
[2019-03-29] MEDS: Insulin Regular 300 UNITS/3 ML VIAL SC PRN ×3 (05:55→17:39)
[2019-03-29 07:37] LABS: Platelet Count 187 thou/uL (130-400)
[2019-03-29 07:44] LABS: INR-International Normal Ratio 1.6; Prothrombin Time 18.8 SEC (12.0-14.7)
[2019-03-29 08:01] LABS: Phosphorus 2.9 mg/dL (2.3-4.7)
[2019-03-29 08:03] LABS: ALT (SGPT) 20 U/L (8-55); AST (SGOT) 41 U/L (5-34); Albumin 3.9 g/dL (3.4-4.8); Alkaline Phosphatase 34 U/L (40-150); Anion Gap 13 mmol/L (10-20); BUN (Urea Nitrogen) 16 mg/dL (8.4-25.7); Bilirubin, Total 1.3 mg/dL (0.2-1.2); Calc. Creatinine Clearance 93 mL/min (70-130); Calcium 9.2 mg/dL (7.8-10.44); Carbon Dioxide 28 mmol/L (23-31); Chloride 99 mmol/L (98-107); Estimated GFR-MDRD 60; Globulin 2.1 g/dL (2.4-3.5); Glucose 176 mg/dL (83-110); Potassium 4.6 mmol/L (3.5-5.1); Sodium 135 mmol/L (136-145)
[2019-03-29 08:19] LABS: Troponin I 12.802 ng/mL (< 0.028)
[2019-03-29] MEDS: TICAGRELOR 90 MG TABLET PO SCH ×2 (09:26→21:02)
[2019-03-29] MEDS: Ezetimibe 10 MG TAB PO SCH (09:27)
[2019-03-29] MEDS: Aspirin 81 mg Enteric Coated Tablet PO SCH (09:27)
[2019-03-29] MEDS: Lisinopril 5 MG TAB PO SCH (09:29)
--- NOTE | 2019-03-29 15:51 | PQF ---
DATE: 03-29-19 ATTN: DR. MEHDI BENITEZ Please exercise your independent, professional judgment in responding to the clarification form. Clinical indicators are provided on the bottom of this form for your review Please check appropriate box(s): [x ] Hyponatremia please specify etiology, if known [ ] Insignificant Lab Values [ ] Other diagnosis [ ] Unable to determine In addition, please specify: Present on Admission (POA): [x ] Yes [ ] No [ ] Unable to determine CLINICAL INDICATORS - SIGNS / SYMPTOMS / LABS SODIUM 03-27-19: 135 03-28-19: 133 03-29-19: 135 RISK FACTORS: H&P 03-27-19: HX CAD, DM 2, DYSLIPIDEMIA, HTN PROCEDURE: 03-27-19 [facility] TREATMENTS: SERIES OF LABS/ MONITORING (This form is maintained as a part of the permanent medical record) 2014 [employer]. All Rights Reserved [email or web address] Office: [phone] [facility]
--- NOTE | 2019-03-29 16:10 | PQF ---
DATE: 03-29-19 ATTN: DR. MEHDI BENITEZ Please exercise your independent, professional judgment in responding to the clarification form. Clinical indicators are provided on the bottom of this form for your review Please check appropriate box(s): [ ] Acute Renal Failure (ARF) / Acute Kidney Injury (IAN) [ x ] Acute on Chronic Renal Failure please specify Stage of CKD __2 (see below) [ ] CKD without ARF/IAN please specify Stage of CKD [ ] Other diagnosis [ ] Unable to determine In addition, please specify: Present on Admission (POA): [ ] Yes [ ] No [ ] Unable to determine National Kidney Foundation Guidelines for CKD Staging Stage I Kidney damage with normal or increased GFR GFR > 90 Stage II Kidney damage with mildly decreased GFR GFR 60- 89 Stage III Kidney damage with moderately decreased GFR GFR 30-59 Stage IV Kidney damage with severely decreased GFR GFR 16-29 Stage V Kidney failure GFR<15 ESRD End Stage Renal Disease On dialysis Acute Renal Failure/Acute Kidney Failure defined as: Increases in SCr by (>) 0.3 mg/dl within 48 hours OR- Increases in SCr by (>) 1.5 times baseline, known or presumed to have occurred within the prior 7 days OR- Urine volume < 0.5 ml/kg/hour for 6 hours (KDIGO supplement 2012 for RIFLE/ABELINO criteria) For continuity of documentation, please document condition throughout progress notes and discharge summary. Thank You. CLINICAL INDICATORS - SIGNS / SYMPTOMS / LABS: GFR: 03-27-19: 52 03-28-19: 73 03-29-19: 60 CREATININE 03-27-19: 1.35 03-28-19: 1.00 03-29-19: 1.19 BUN: 03-27-19: 19 03-28-19: 14 03-29-19: 16 H&P: 03-27-19: PE: 1+ LOWER EXT EDEMA, PEDAL PULSES DIFFICULT TO PALPATE RISK FACTORS: PROCEDURE: 03-27-19: [facility] PCI PROCEDURE BMS WITH ARTHRECTOMY IN GRAFT H&P 03-29-19: HOME MEDS: METFORMIN, AMIODARONE TREATMENTS: SERIES OF LABS / MONITORING (This form is maintained as a part of the permanent medical record) 2014 [employer]. All Rights Reserved [email or web address] Office: [phone] [facility]
[2019-03-29] MEDS: Warfarin Sodium 10 MG TAB PO SCH (16:21)
[2019-03-29] MEDS: Enoxaparin Sodium 120 MG/0.8 ML SYRINGE SC SCH (21:02)
[2019-03-29] MEDS: Rosuvastatin 20 MG TAB PO SCH (21:02)
[2019-03-29] MEDS: Ubidecarenone 50 MG CAP PO SCH (21:03)
--- NOTE | 2019-03-29 23:08 | PDOC.HOSPP ---
- Subjective Encounter Date: 03/29/19 Encounter Time: 14:00 Subjective: Patient seen and examined for med mngt. No CP or SOB. No new complaints. No overnight events - Objective Vital Signs & Weight: Vital Signs (12 hours) Temp Pulse Resp BP Pulse Ox 03/29/19 19:45 97.8 F 89 16 122/75 99 03/29/19 15:15 97.9 F 84 16 126/58 L 100 Weight Weight 261 lb 14.546 oz Most Recent Monitor Data Heart Rate from ECG 70 NIBP 126/71 NIBP BP-Mean 89 Respiration from ECG 14 SpO2 92 I&O: 03/28/19 03/29/19 03/30/19 06:59 06:59 06:59 Intake Total 772 1567 680 Output Total 6948 1750 350 Balance -1193 -183 330 Result Diagrams: 03/29/19 07:06 03/29/19 07:06 Additional Labs: Accuchecks 03/29/19 03/29/19 03/29/19 20:12 17:40 10:48 POC Glucose 181 H 155 H 192 H 03/29/19 05:56 POC Glucose 186 H EKG Reviewed by me: Yes (Tele Afib) Hospitalist ROS - Review of Systems Respiratory: denies: cough, dry, shortness of breath, hemoptysis, SOB with excertion, pleuritic pain, sputum, wheezing, other Cardiovascular: denies: chest pain, palpitations, orthopnea, paroxysmal noc. dyspnea, edema, light headedness, other Gastrointestinal: denies: nausea, vomiting, abdominal pain, diarrhea, constipation, melena, hematochezia, other - Medication Medications: Active Medications Generic Name Dose Route Start Last Admin Trade Name Freq PRN Reason Stop Dose Admin Hydrocodone Bitart/Acetaminophen 1 tab 03/27/19 09:40 03/27/19 20:50 [place] 5/325 PO 1 tab Q4H PRN Administration Mild Pain (1-3) Aspirin 81 mg 03/28/19 09:00 03/29/19 09:27 Ecotrin PO 81 mg DAILY CECILIA Administration Calcium Carbonate 1,000 mg 03/28/19 21:10 03/28/19 21:23 Tums PO 1,000 mg DAILYPRN PRN Administration Heartburn or Indigestion Coenzyme Q10 200 mg 03/28/19 21:00 03/29/19 21:03 Coenzyme Q10 PO 200 mg HS CECILIA Administration Ezetimibe 10 mg 03/29/19 09:00 03/29/19 09:27 Zetia PO 10 mg DAILY CECILIA Administration Enoxaparin Sodium 120 mg 03/29/19 21:00 03/29/19 21:02 Lovenox SC 120 mg 0900,2100 CECILIA Administration Insulin Human Regular 0 units 03/27/19 14:41 03/29/19 17:39 Humulin R SC 2 unit .MODERATE SLIDING SC PRN Administration MODERATE SLIDING SCALE Protocol Insulin Human Regular 0 units 03/28/19 09:36 03/28/19 19:54 Humulin R SC 2 unit .BEDTIME SLIDING SC PRN Administration Bedtime Correctional Scale Lisinopril 5 mg 03/28/19 09:00 03/29/19 09:29 Zestril PO 5 mg DAILY CECILIA Administration Morphine Sulfate 2 mg 03/27/19 09:40 03/27/19 18:18 Morphine SLOW IVP 2 mg Q4H PRN Administration Moderate Chest Pain (4-6) Ondansetron HCl 4 mg 03/27/19 18:10 03/28/19 09:54 Zofran SLOW IVP 4 mg Q6H PRN Administration Nausea Propafenone HCl 150 mg 03/28/19 14:00 03/29/19 21:03 Rythmol PO 150 mg Q8HR CECILIA Administration Rosuvastatin Calcium 20 mg 03/28/19 21:00 03/29/19 21:02 Crestor PO 20 mg HS CECILIA Administration Ticagrelor 90 mg 03/27/19 21:00 03/29/19 21:02 Brilinta PO 03/29/19 23:59 90 mg BID CECILIA Administration Warfarin Sodium 10 mg 03/28/19 17:00 03/29/19 16:21 Coumadin PO 10 mg 1700 CECILIA Administration - Exam General Appearance: NAD Neck: supple, no JVD Heart: RRR, no gallops Respiratory: CTAB, no rales, no ronchi Gastrointestinal: soft, non-tender, non-distended, normal bowel sounds Psychiatric: normal affect, A&O x 3 Hosp A/P (1) DM2 (diabetes mellitus, type 2) Status: Chronic Qualifiers: Chronic kidney disease stage: stage 2 (mild) (2) Dyslipidemia Code(s): E78.5 - HYPERLIPIDEMIA, UNSPECIFIED Status: Chronic (3) Chronic a-fib Code(s): I48.2 - CHRONIC ATRIAL FIBRILLATION Status: Chronic (4) Obesity (BMI 30.0-34.9) Code(s): E66.9 - OBESITY, UNSPECIFIED Status: Chronic (5) HTN (hypertension) Code(s): I10 - ESSENTIAL (PRIMARY) HYPERTENSION Status: Chronic - Plan Add 10 units Lantus daily Cont moderate sliding scale Metformin on hold On dual antiplatelet due to stent placement DC Lovenox when INR >=2 on Warfarin for Afib AM labs
[2019-03-30 05:05] LABS: Hemoglobin 16.3 g/dL (14.0-18.0); Platelet Count 201 thou/uL (130-400)
[2019-03-30] MEDS: Propafenone HCl 150 MG TAB PO SCH ×3 (05:12→21:29)
[2019-03-30 05:25] LABS: Anion Gap 15 mmol/L (10-20); BUN (Urea Nitrogen) 19 mg/dL (8.4-25.7); Calc. Creatinine Clearance 94 mL/min (70-130); Calcium 9.3 mg/dL (7.8-10.44); Carbon Dioxide 22 mmol/L (23-31); Chloride 100 mmol/L (98-107); Estimated GFR-MDRD 61; Glucose 179 mg/dL (83-110); Magnesium 1.9 mg/dL (1.6-2.6); Potassium 3.9 mmol/L (3.5-5.1); Sodium 133 mmol/L (136-145)
[2019-03-30 05:38] LABS: INR-International Normal Ratio 1.9; Prothrombin Time 21.7 SEC (12.0-14.7)
[2019-03-30] MEDS: Ezetimibe 10 MG TAB PO SCH (08:28)
[2019-03-30] MEDS: Aspirin 81 mg Enteric Coated Tablet PO SCH (08:28)
[2019-03-30] MEDS: Clopidogrel Bisulfate 75 MG TAB PO SCH (08:28)
[2019-03-30] MEDS: Lisinopril 5 MG TAB PO SCH (08:28)
[2019-03-30] MEDS: Enoxaparin Sodium 120 MG/0.8 ML SYRINGE SC SCH ×2 (08:28→21:29)
[2019-03-30] MEDS: Insulin Glargine 10 UNITS in Pre-Filled Syringe 1 EACH SC SCH (08:29)
[2019-03-30] MEDS ORDERED: Enoxaparin Sodium 120 MG/0.8 ML SYRINGE SC SCH (09:00)
--- NOTE | 2019-03-30 12:32 | EKG ---
Test Reason : Blood Pressure : / mmHG Vent. Rate : 080 BPM Atrial Rate : 080 BPM P-R Int : 170 ms QRS Dur : 104 ms QT Int : 332 ms P-R-T Axes : 090 066 126 degrees QTc Int : 382 ms Sinus rhythm with Premature supraventricular complexes Inferior infarct , possibly acute Cannot rule out Anterior infarct , age undetermined * ACUTE IN * Consider right ventricular involvement in acute inferior infarct Abnormal ECG ST elevation-myorcardial infarction Confirmed by KADEN BLANDON M.D. ([id number]), order editor KATINA HENRIQUEZ ([id number]) on 03/30/2019 12:31:54 PM Referred By: Confirmed By:KADEN BLANDON M.D.
[2019-03-30] MEDS: Insulin Regular 300 UNITS/3 ML VIAL SC PRN (12:40)
--- NOTE | 2019-03-30 14:05 | PDOC.HOSPP ---
- Subjective Encounter Date: 03/30/19 Encounter Time: 07:00 Subjective: Pt seen for followup re: DM2. Feels well, denies any complaints. - Objective Vital Signs & Weight: Vital Signs (12 hours) Temp Pulse Resp BP BP Pulse Ox 03/30/19 11:23 97.9 F 80 18 110/72 98 03/30/19 08:28 87 03/30/19 08:05 98 F 87 18 143/59 H 98 03/30/19 04:00 97.2 F L 81 12 124/62 99 Weight Weight 261 lb 14.546 oz Most Recent Monitor Data Heart Rate from ECG 70 NIBP 126/71 NIBP BP-Mean 89 Respiration from ECG 14 SpO2 92 I&O: 03/29/19 03/30/19 03/31/19 06:59 06:59 06:59 Intake Total 1567 920 Output Total 1750 1150 Balance -183 -230 Result Diagrams: 03/30/19 04:34 03/30/19 04:34 Additional Labs: Accuchecks 03/30/19 03/30/19 03/29/19 12:16 05:12 20:12 POC Glucose 240 H 172 H 181 H 03/29/19 17:40 POC Glucose 155 H Labs and MARs reviewed by me EKG Reviewed by me: Yes (Tele: NSR) Hospitalist ROS - Review of Systems Cardiovascular: denies: chest pain, palpitations, orthopnea, paroxysmal noc. dyspnea, edema, light headedness Gastrointestinal: denies: nausea, vomiting, abdominal pain, diarrhea, constipation, melena, hematochezia - Medication Medications: Active Medications Generic Name Dose Route Start Last Admin Trade Name Freq PRN Reason Stop Dose Admin Hydrocodone Bitart/Acetaminophen 1 tab 03/27/19 09:40 03/27/19 20:50 [place] 5/325 PO 1 tab Q4H PRN Administration Mild Pain (1-3) Aspirin 81 mg 03/28/19 09:00 03/30/19 08:28 Ecotrin PO 81 mg DAILY CECILIA Administration Calcium Carbonate 1,000 mg 03/28/19 21:10 03/28/19 21:23 Tums PO 1,000 mg DAILYPRN PRN Administration Heartburn or Indigestion Clopidogrel Bisulfate 75 mg 03/30/19 09:00 03/30/19 08:28 Plavix PO 75 mg DAILY CECILIA Administration Coenzyme Q10 200 mg 03/28/19 21:00 03/29/19 21:03 Coenzyme Q10 PO 200 mg HS CECILIA Administration Ezetimibe 10 mg 03/29/19 09:00 03/30/19 08:28 Zetia PO 10 mg DAILY CECILIA Administration Enoxaparin Sodium 120 mg 03/29/19 21:00 03/30/19 08:28 Lovenox SC 120 mg 0900,2100 CECILIA Administration Insulin Glargine 10 units/ 0.1 mls @ 0 mls/hr 03/30/19 09:00 03/30/19 08:29 Miscellaneous Medication SC 0.1 mls QAM CECILIA Administration Insulin Human Regular 0 units 03/27/19 14:41 03/30/19 12:40 Humulin R SC 2 unit .MODERATE SLIDING SC PRN Administration MODERATE SLIDING SCALE Protocol Insulin Human Regular 0 units 03/28/19 09:36 03/28/19 19:54 Humulin R SC 2 unit .BEDTIME SLIDING SC PRN Administration Bedtime Correctional Scale Lisinopril 5 mg 03/28/19 09:00 03/30/19 08:28 Zestril PO 5 mg DAILY CECILIA Administration Morphine Sulfate 2 mg 03/27/19 09:40 03/27/19 18:18 Morphine SLOW IVP 2 mg Q4H PRN Administration Moderate Chest Pain (4-6) Ondansetron HCl 4 mg 03/27/19 18:10 03/28/19 09:54 Zofran SLOW IVP 4 mg Q6H PRN Administration Nausea Propafenone HCl 150 mg 03/28/19 14:00 03/30/19 13:24 Rythmol PO 150 mg Q8HR CECILIA Administration Rosuvastatin Calcium 20 mg 03/28/19 21:00 03/29/19 21:02 Crestor PO 20 mg HS CECILIA Administration Warfarin Sodium 10 mg 03/28/19 17:00 03/29/19 16:21 Coumadin PO 10 mg 1700 CECILIA Administration - Exam General - other findings: Obese Eye: anicteric sclera ENT: moist mucosa Neck: supple, symmetric Heart: RRR, no rubs Respiratory: CTAB Gastrointestinal: soft, non-tender Neurological: no weakness Musculoskeletal: no muscle wasting Psychiatric: normal affect, normal behavior Hosp A/P (1) DM2 (diabetes mellitus, type 2) Status: Chronic Qualifiers: Chronic kidney disease stage: stage 2 (mild) (2) Dyslipidemia Code(s): E78.5 - HYPERLIPIDEMIA, UNSPECIFIED Status: Chronic (3) HTN (hypertension) Code(s): I10 - ESSENTIAL (PRIMARY) HYPERTENSION Status: Chronic (4) Obesity (BMI 30.0-34.9) Code(s): E66.9 - OBESITY, UNSPECIFIED Status: Chronic (5) Afib Code(s): I48.91 - UNSPECIFIED ATRIAL FIBRILLATION Status: Chronic - Plan Blood sugars still high, switch to aggressive insulin sliding scale. INR 1.9 today. Discontinue Lovenox when INR >=2.0 Continue dual antiplatelet therapy for PCI with drug eluting stent.
[2019-03-30] MEDS ORDERED: Insulin Regular 300 UNITS/3 ML VIAL SC PRN (14:11)
[2019-03-30] MEDS: Warfarin Sodium 10 MG TAB PO SCH (16:37)
[2019-03-30] MEDS: Rosuvastatin 20 MG TAB PO SCH (21:29)
[2019-03-30] MEDS: Ubidecarenone 50 MG CAP PO SCH (21:29)
[2019-03-31] MEDS: Propafenone HCl 150 MG TAB PO SCH ×2 (05:17→13:24)
[2019-03-31 05:25] LABS: INR-International Normal Ratio 2.4; Prothrombin Time 26.2 SEC (12.0-14.7)
[2019-03-31] MEDS: Ezetimibe 10 MG TAB PO SCH (09:12)
[2019-03-31] MEDS: Lisinopril 5 MG TAB PO SCH (09:12)
[2019-03-31] MEDS: Aspirin 81 mg Enteric Coated Tablet PO SCH (09:12)
[2019-03-31] MEDS: Clopidogrel Bisulfate 75 MG TAB PO SCH (09:13)
[2019-03-31] MEDS: Insulin Glargine 10 UNITS in Pre-Filled Syringe 1 EACH SC SCH (09:13)
[2019-03-31 12:02] VITALS: TEMP 99.7
[2019-03-31] MEDS: Insulin Regular 300 UNITS/3 ML VIAL SC PRN (12:03)
[2019-03-31 13:24] VITALS: BP 136/65
== END 2019-03-31 14:15 | disposition home or self-care (01) | DRG 249 ==
LOC: ERS 05:57 → CCU 06:39 → CCL 06:44 → CCU 10:03 → 2NO 03-29 15:17
PROVIDERS: ADMIT Internal Medicine Cardiovascular Disease; ATTEND Internal Medicine Cardiovascular Disease
PROC: 02703FZ Dilation of Coronary Artery, One Artery with Three Intraluminal Devices, Percutaneous Approach (ICD-10-PCS; principal; 2019-03-27)
PROC: 02C03ZZ Extirpation of Matter from Coronary Artery, One Artery, Percutaneous Approach (ICD-10-PCS; 2019-03-27)
PROC: 4A023N7 Measurement of Cardiac Sampling and Pressure, Left Heart, Percutaneous Approach (ICD-10-PCS; 2019-03-27)
PROC: B2151ZZ Fluoroscopy of Left Heart using Low Osmolar Contrast (ICD-10-PCS; 2019-03-27)
PROC: B2131ZZ Fluoroscopy of Multiple Coronary Artery Bypass Grafts using Low Osmolar Contrast (ICD-10-PCS; 2019-03-27)
PROC: B2111ZZ Fluoroscopy of Multiple Coronary Arteries using Low Osmolar Contrast (ICD-10-PCS; 2019-03-27)
PROC: B2181ZZ Fluoroscopy of Left Internal Mammary Bypass Graft using Low Osmolar Contrast (ICD-10-PCS; 2019-03-27)
DX: I21.19 ST elevation (STEMI) myocardial infarction involving other coronary artery of inferior wall (principal); E87.1 Hypo-osmolality and hyponatremia; N17.9 Acute kidney failure, unspecified; I25.10 Atherosclerotic heart disease of native coronary artery without angina pectoris; I48.2 Chronic atrial fibrillation; E78.5 Hyperlipidemia, unspecified; I12.9 Hypertensive chronic kidney disease with stage 1 through stage 4 chronic kidney disease, or unspecified chronic kidney disease; N18.2 Chronic kidney disease, stage 2 (mild); E11.22 Type 2 diabetes mellitus with diabetic chronic kidney disease; E66.9 Obesity, unspecified; Z68.34 Body mass index [BMI] 34.0-34.9, adult; Z95.1 Presence of aortocoronary bypass graft; Z86.711 Personal history of pulmonary embolism; Z91.19 Patient's noncompliance with other medical treatment and regimen; Z79.01 Long term (current) use of anticoagulants; Z79.84 Long term (current) use of oral hypoglycemic drugs; Z79.899 Other long term (current) drug therapy; E78.00 Pure hypercholesterolemia, unspecified; Z87.891 Personal history of nicotine dependence; I25.2 Old myocardial infarction
CPT/HCPCS: 33210; 36415; 36416; 71045; 80048; 80053; 80061; 83735; 84100; 84484; 85014; 85018; 85025; 85049; 85347; 85610; 85730; 92937; 92973; 92977; 93005; 93010; 93306; 93455; 93798; 96374; C1757; C1769; C1876; C1887; J0153; J0461; J0583; J1644; J1650; J1815; J2001; J2270; J2405; J3246; Q9967

== ENCOUNTER 2021-07-18 20:41 | Inpatient (IN) | payer MEDICARE ==
[2021-07-18] MEDS ORDERED: Diltiazem 125 MG/25 ML ONE (21:14)
[2021-07-18 21:43] LABS: #Basophils 0.1 thou/uL (0.0-0.2); #Lymphocytes 1.4 thou/uL (1.20-3.40); #Monocytes 0.7 thou/uL (0.11-0.59); #Neutrophils 5.8 thou/uL (1.40-6.50); %Basophils 0.8 % (0.0-1.0); %Eosinophils 0.2 % (0.0-10.0); %Lymphocytes 17.8 % (21.0-51.0); %Neutrophils 72.1 % (42.0-75.0); Hemoglobin 16.1 g/dL (14.0-18.0); Mean Corpuscular HGB CONC 31.4 g/dL (32.0-36.0); Mean Corpuscular Hemoglobin 29.3 pg (27.0-31.0); Mean Corpuscular Volume 93.1 fL (78.0-98.0); Mean Platelet Volume 7.4 fL (7.4-10.4); Platelet Count 232 thou/uL (130-400); RBC Distribution Width 15.7 % (11.5-14.5); Red Blood Cell (RBC) Count 5.51 mill/uL (4.70-6.10); White Blood Cell (WBC) Count 8.1 thou/uL (4.8-10.8)
[2021-07-18] MEDS ORDERED: Aspirin Chewable 81 MG TAB ONE ×2 (21:48)
[2021-07-18 21:59] LABS: PTT 68.8 sec (22.9-36.1); Prothrombin Time 64.1 sec (12.0-14.7)
[2021-07-18 22:07] LABS: D-Dimer Test 18.37 *mcg/mL (0.27-0.43)
[2021-07-18] MEDS ORDERED: Digoxin 0.5 MG/2 ML AMP ONE (22:08)
[2021-07-18 22:11] LABS: ALT (SGPT) 14 U/L (8-55); AST (SGOT) 29 U/L (5-34); Albumin 3.4 g/dL (3.4-4.8); Alkaline Phosphatase 64 U/L (40-110); Anion Gap 21 mmol/L (10-20); BUN (Urea Nitrogen) 46 mg/dL (8.4-25.7); Bilirubin, Total 2.5 mg/dL (0.2-1.2); CK (CPK) 59 U/L (30-200); Calc. Creatinine Clearance 0 mL/min (70-130); Calcium 9.4 mg/dL (7.8-10.44); Carbon Dioxide 17 mmol/L (23-31); Chloride 102 mmol/L (98-107); Globulin 3.5 g/dL (2.4-3.5); Glucose 109 mg/dL (83-110); Potassium 5.1 mmol/L (3.5-5.1); Protein, Total 6.9 g/dL (5.8-8.1); Sodium 135 mmol/L (136-145)
[2021-07-18 22:15] LABS: INR-International Normal Ratio 7.3
[2021-07-18 22:36] LABS: CKMB 2.4 ng/mL (0-6.6)
[2021-07-18] MEDS ORDERED: VANCOMYCIN 2 GRAM/400 ML BAG 2 GM in Premix Bag 1 BAG IVPB SCH (23:45)
[2021-07-18] MEDS ORDERED: Cefepime 2 GM VIAL ONE (23:48)
[2021-07-18] MEDS ORDERED: Pantoprazole 40 MG VIAL ONE (23:48)
[2021-07-19] MEDS ORDERED: Lidocaine Viscous Sol 2% 15 ml UD Cup ONE (00:14)
[2021-07-19] MEDS ORDERED: Mag-Al 1200 mg/1200 mg/30 ML UDCUP ONE (00:14)
[2021-07-19 00:27] LABS: SARS-CoV-2 NAA Rapid Test Not Detected (NotDetected)
[2021-07-19] MEDS ORDERED: Amiodarone 450 MG, Admixture Fee 1 EACH in Dextrose 5% in Water 250 ML IVPB PRN (01:03)
[2021-07-19] MEDS ORDERED: Diltiazem HCl 125 MG, Admixture Fee 1 EACH in Sodium Chloride 0.9% 100 ML IVPB SCH (01:15)
[2021-07-19] MEDS ORDERED: Ondansetron ODT 4 MG TAB SL PRN (01:15)
[2021-07-19] MEDS ORDERED: Ondansetron PF 4 MG/2 ML Vial IVP PRN ×2 (01:15→01:27)
[2021-07-19] MEDS ORDERED: Acetaminophen 325 MG TAB PO PRN (01:15)
[2021-07-19 01:25] LABS: Lactic Acid 2.9 mmol/L (0.5-2.2)
[2021-07-19] MEDS ORDERED: Furosemide 40 MG/4 ML VIAL SLOW IVP SCH ×2 (01:45→10:15)
[2021-07-19 01:58] LABS: Lactic Acid 3.4 mmol/L (0.5-2.2)
[2021-07-19] MEDS ORDERED: WARFARIN IVPB PRN (02:00)
[2021-07-19 02:02] LABS: Anion Gap 21 mmol/L (10-20); BUN (Urea Nitrogen) 49 mg/dL (8.4-25.7); Calc. Creatinine Clearance 65 mL/min (70-130); Calcium 9.4 mg/dL (7.8-10.44); Carbon Dioxide 20 mmol/L (23-31); Chloride 102 mmol/L (98-107); Glucose 114 mg/dL (83-110); Magnesium 1.9 mg/dL (1.6-2.6); Potassium 4.5 mmol/L (3.5-5.1); Sodium 138 mmol/L (136-145)
[2021-07-19 02:06] LABS: Troponin I 0.032 ng/mL (< 0.028)
[2021-07-19 09:00] LABS: #Lymphocytes 1.1 thou/uL (1.20-3.40); #Monocytes 0.8 thou/uL (0.11-0.59); #Neutrophils 7.7 thou/uL (1.40-6.50); %Basophils 0.2 % (0.0-1.0); %Eosinophils 0.3 % (0.0-10.0); %Lymphocytes 11.2 % (21.0-51.0); %Monocytes 7.9 % (0.0-10.0); %Neutrophils 80.4 % (42.0-75.0); Hemoglobin 14.6 g/dL (14.0-18.0); Mean Corpuscular Hemoglobin 28.4 pg (27.0-31.0); Mean Corpuscular Volume 88.7 fL (78.0-98.0); Mean Platelet Volume 7.4 fL (7.4-10.4); Platelet Count 199 thou/uL (130-400); RBC Distribution Width 15.4 % (11.5-14.5); Red Blood Cell (RBC) Count 5.14 mill/uL (4.70-6.10); White Blood Cell (WBC) Count 9.6 thou/uL (4.8-10.8)
[2021-07-19] MEDS ORDERED: FLU VACC QS2021-22(65YR UP)/PF 240 MCG/0.7 ML SYRINGE IM ONE (09:00)
[2021-07-19] MEDS ORDERED: Enoxaparin Sodium 30 MG/0.3 ML SYRINGE SC SCH (09:00)
[2021-07-19 09:13] LABS: Prothrombin Time 70.7 sec (12.0-14.7)
[2021-07-19 09:32] LABS: Troponin I 0.031 ng/mL (< 0.028)
[2021-07-19 09:35] LABS: INR-International Normal Ratio 8.2
[2021-07-19] MEDS ORDERED: Phytonadione 10 MG/ML AMP SLOW IVP SCH (10:00)
[2021-07-19] MEDS ORDERED: Phytonadione 10 MG in Sodium Chloride 0.9% 50 ML IVPB SCH (10:30)
[2021-07-19] MEDS ORDERED: HumaLOG 300 UNITS/3 ML VIAL SC PRN (11:11)
[2021-07-19] MEDS ORDERED: Dextrose 50% Abboject 50 ML SYRINGE SLOW IVP PRN (11:11)
[2021-07-19] MEDS ORDERED: Dextrose 5% in Water 1,000 ML IV PRN (11:11)
[2021-07-19] MEDS: Furosemide 40 MG/4 ML VIAL SLOW IVP SCH (21:15)
[2021-07-20] MEDS: Diltiazem HCl 125 MG, Admixture Fee 1 EACH in Sodium Chloride 0.9% 100 ML IVPB SCH ×3 (00:23→15:54)
[2021-07-20 03:47] LABS: Prothrombin Time 23.1 sec (12.0-14.7)
[2021-07-20 03:56] LABS: Anion Gap 14 mmol/L (10-20); BUN (Urea Nitrogen) 34 mg/dL (8.4-25.7); Calc. Creatinine Clearance 85 mL/min (70-130); Calcium 8.7 mg/dL (7.8-10.44); Carbon Dioxide 24 mmol/L (23-31); Chloride 100 mmol/L (98-107); Glucose 128 mg/dL (83-110); Potassium 3.3 mmol/L (3.5-5.1); Sodium 135 mmol/L (136-145)
[2021-07-20] MEDS: Furosemide 40 MG/4 ML VIAL SLOW IVP SCH ×2 (08:59→20:48)
[2021-07-20] MEDS ORDERED: Potassium Chloride 40 MEQ in Sodium Chloride 0.9% 250 ML 250 ML IVPB SCH (10:30)
[2021-07-20] MEDS ORDERED: Potassium Bicarbonate/Cit Ac 20 MEQ TAB PO SCH (12:15)
[2021-07-20] MEDS ORDERED: Potassium Chloride 20 MEQ TAB PO SCH (13:15)
[2021-07-20] MEDS ORDERED: Warfarin Sodium 5 MG TAB PO SCH (17:00)
[2021-07-20] MEDS ORDERED: Digoxin 0.5 MG/2 ML AMP SLOW IVP SCH (19:15)
[2021-07-20] MEDS: Enoxaparin Sodium 120 MG/0.8 ML SYRINGE SC SCH (20:48)
[2021-07-21] MEDS: Diltiazem HCl 125 MG, Admixture Fee 1 EACH in Sodium Chloride 0.9% 100 ML IVPB SCH ×3 (00:22→17:22)
[2021-07-21 04:58] LABS: INR-International Normal Ratio 1.6; Prothrombin Time 19.5 sec (12.0-14.7)
[2021-07-21 05:14] LABS: Anion Gap 13 mmol/L (10-20); BUN (Urea Nitrogen) 27 mg/dL (8.4-25.7); Calc. Creatinine Clearance 107 mL/min (70-130); Calcium 8.6 mg/dL (7.8-10.44); Carbon Dioxide 26 mmol/L (23-31); Cardiac Risk 3.7 (Less than 4.5); Chloride 102 mmol/L (98-107); Cholesterol 84 mg/dl (< 200 Desired); Glucose 129 mg/dL (83-110); HDL Cholesterol 23 mg/dL (>60 Neg Risk); LDL Cholesterol, Calculated 48 mg/dL; Potassium 3.4 mmol/L (3.5-5.1); Sodium 138 mmol/L (136-145); Triglycerides 65 mg/dL (Less than 150)
[2021-07-21 05:18] LABS: Digoxin 0.75 ng/mL (0.8-2.0)
[2021-07-21] MEDS ORDERED: Communication Order-Pharmacy FS ONE (07:23)
[2021-07-21 08:16] LABS: Hemoglobin 13.5 g/dL (14.0-18.0); Platelet Count 193 thou/uL (130-400)
[2021-07-21] MEDS: Enoxaparin Sodium 120 MG/0.8 ML SYRINGE SC SCH ×2 (08:21→20:53)
[2021-07-21] MEDS: Furosemide 40 MG/4 ML VIAL SLOW IVP SCH ×2 (08:21→20:53)
[2021-07-21] MEDS ORDERED: WARFARIN IVPB PRN (08:59)
[2021-07-21] MEDS ORDERED: Enoxaparin Sodium 120 MG/0.8 ML SYRINGE SC SCH (09:00)
[2021-07-21] MEDS ORDERED: Warfarin Sodium 5 MG TAB PO SCH (17:00)
[2021-07-21] MEDS ORDERED: Diltiazem HCl 125 MG, Admixture Fee 1 EACH in Sodium Chloride 0.9% 100 ML IVPB SCH (17:07)
[2021-07-21] MEDS ORDERED: Digoxin 0.5 MG/2 ML AMP SLOW IVP SCH (17:15)
[2021-07-21] MEDS ORDERED: Digoxin 0.5 MG/2 ML AMP ONE (17:19)
[2021-07-21] MEDS: HumaLOG 300 UNITS/3 ML VIAL SC PRN (17:23)
[2021-07-22 05:05] LABS: INR-International Normal Ratio 1.8; Prothrombin Time 21.5 sec (12.0-14.7)
[2021-07-22 05:23] LABS: Anion Gap 13 mmol/L (10-20); BUN (Urea Nitrogen) 17 mg/dL (8.4-25.7); Calc. Creatinine Clearance 130 mL/min (70-130); Calcium 8.3 mg/dL (7.8-10.44); Carbon Dioxide 26 mmol/L (23-31); Chloride 103 mmol/L (98-107); Glucose 111 mg/dL (83-110); Potassium 3.1 mmol/L (3.5-5.1); Sodium 139 mmol/L (136-145)
[2021-07-22] MEDS ORDERED: Metolazone 5 MG TAB PO SCH (07:45)
[2021-07-22] MEDS ORDERED: Potassium Chloride 20 MEQ TAB PO SCH (07:45)
[2021-07-22] MEDS: Enoxaparin Sodium 120 MG/0.8 ML SYRINGE SC SCH ×2 (09:32→20:58)
[2021-07-22] MEDS: Spironolactone 25 MG TAB PO SCH (09:32)
[2021-07-22] MEDS: Digoxin 0.125 MG TAB PO SCH (09:32)
[2021-07-22] MEDS: Carvedilol 3.125 MG TAB PO SCH ×2 (09:33→17:05)
[2021-07-22] MEDS: Furosemide 40 MG/4 ML VIAL SLOW IVP SCH ×2 (10:17→20:58)
[2021-07-22] MEDS ORDERED: Diltiazem 125 MG, Admixture Fee 1 EACH in Sodium Chloride 0.9% 100 ML IVPB SCH (17:00)
[2021-07-23 04:46] LABS: INR-International Normal Ratio 1.7; Prothrombin Time 20.3 sec (12.0-14.7)
[2021-07-23 04:50] LABS: Anion Gap 14 mmol/L (10-20); BUN (Urea Nitrogen) 16 mg/dL (8.4-25.7); Calc. Creatinine Clearance 105 mL/min (70-130); Calcium 8.5 mg/dL (7.8-10.44); Carbon Dioxide 28 mmol/L (23-31); Chloride 99 mmol/L (98-107); Digoxin 0.97 ng/mL (0.8-2.0); Glucose 115 mg/dL (83-110); Potassium 3.5 mmol/L (3.5-5.1); Sodium 137 mmol/L (136-145)
[2021-07-23] MEDS ORDERED: Potassium Chloride 20 MEQ TAB PO SCH (08:30)
[2021-07-23] MEDS ORDERED: Metolazone 5 MG TAB PO SCH (08:30)
[2021-07-23] MEDS: Spironolactone 25 MG TAB PO SCH (08:32)
[2021-07-23] MEDS: Carvedilol 6.25 MG TAB PO SCH ×2 (08:32→16:22)
[2021-07-23] MEDS: Digoxin 0.125 MG TAB PO SCH (08:32)
[2021-07-23] MEDS: Enoxaparin Sodium 120 MG/0.8 ML SYRINGE SC SCH ×2 (08:33→21:21)
[2021-07-23] MEDS: Furosemide 40 MG/4 ML VIAL SLOW IVP SCH ×2 (08:33→21:22)
[2021-07-23] MEDS ORDERED: Diltiazem 125 MG, Admixture Fee 1 EACH in Sodium Chloride 0.9% 100 ML IVPB SCH (11:15)
[2021-07-23] MEDS: HumaLOG 300 UNITS/3 ML VIAL SC PRN (11:38)
[2021-07-24 04:50] LABS: Hemoglobin 13.1 g/dL (14.0-18.0); Platelet Count 181 thou/uL (130-400)
[2021-07-24 05:02] LABS: INR-International Normal Ratio 1.4; Prothrombin Time 17.7 sec (12.0-14.7)
[2021-07-24 05:06] LABS: Anion Gap 16 mmol/L (10-20); BUN (Urea Nitrogen) 17 mg/dL (8.4-25.7); Calc. Creatinine Clearance 121 mL/min (70-130); Carbon Dioxide 25 mmol/L (23-31); Chloride 97 mmol/L (98-107); Glucose 110 mg/dL (83-110); Potassium 3.4 mmol/L (3.5-5.1); Sodium 135 mmol/L (136-145)
[2021-07-24] MEDS ORDERED: Potassium Chloride 20 MEQ TAB PO SCH (08:30)
[2021-07-24] MEDS: Enoxaparin Sodium 120 MG/0.8 ML SYRINGE SC SCH ×2 (09:29→20:07)
[2021-07-24] MEDS: Furosemide 40 MG/4 ML VIAL SLOW IVP SCH ×2 (09:29→20:07)
[2021-07-24] MEDS: Carvedilol 6.25 MG TAB PO SCH ×2 (09:29→17:14)
[2021-07-24] MEDS: Metolazone 5 MG TAB PO SCH (09:29)
[2021-07-24] MEDS: Spironolactone 25 MG TAB PO SCH (09:31)
[2021-07-24] MEDS: Digoxin 0.125 MG TAB PO SCH (09:31)
[2021-07-24] MEDS ORDERED: Digoxin 0.5 MG/2 ML AMP SLOW IVP SCH (09:45)
[2021-07-24] MEDS: Potassium Chloride 20 MEQ TAB PO SCH (17:15)
[2021-07-25 05:41] LABS: INR-International Normal Ratio 1.3; Prothrombin Time 16.2 sec (12.0-14.7)
[2021-07-25] MEDS: Carvedilol 6.25 MG TAB PO SCH ×2 (08:22→18:02)
[2021-07-25] MEDS ORDERED: Digoxin 0.5 MG/2 ML AMP SLOW IVP SCH (09:00)
[2021-07-25] MEDS: Enoxaparin Sodium 120 MG/0.8 ML SYRINGE SC SCH ×2 (09:20→21:07)
[2021-07-25] MEDS: Furosemide 40 MG/4 ML VIAL SLOW IVP SCH ×2 (09:21→21:07)
[2021-07-25] MEDS: Metolazone 5 MG TAB PO SCH (09:21)
[2021-07-25] MEDS: Potassium Chloride 20 MEQ TAB PO SCH ×2 (09:23→17:59)
[2021-07-25] MEDS: Digoxin 0.25 MG TAB PO SCH (09:23)
[2021-07-25] MEDS: Spironolactone 25 MG TAB PO SCH (09:23)
[2021-07-25] MEDS ORDERED: Potassium Chloride 20 MEQ TAB PO SCH (09:30)
[2021-07-25 15:38] LABS: Anion Gap 12 mmol/L (10-20); BUN (Urea Nitrogen) 19 mg/dL (8.4-25.7); Calc. Creatinine Clearance 89 mL/min (70-130); Carbon Dioxide 34 mmol/L (23-31); Chloride 93 mmol/L (98-107); Glucose 232 mg/dL (83-110); Magnesium 1.7 mg/dL (1.6-2.6); Potassium 3.8 mmol/L (3.5-5.1); Sodium 135 mmol/L (136-145)
[2021-07-26 06:05] LABS: INR-International Normal Ratio 1.3
[2021-07-26 06:27] LABS: Anion Gap 16 mmol/L (10-20); BUN (Urea Nitrogen) 17 mg/dL (8.4-25.7); Calc. Creatinine Clearance 105 mL/min (70-130); Calcium 9.7 mg/dL (7.8-10.44); Carbon Dioxide 30 mmol/L (23-31); Chloride 93 mmol/L (98-107); Glucose 125 mg/dL (83-110); Potassium 3.7 mmol/L (3.5-5.1); Sodium 135 mmol/L (136-145)
[2021-07-26] MEDS: Potassium Chloride 20 MEQ TAB PO SCH ×2 (08:54→18:12)
[2021-07-26] MEDS: Digoxin 0.25 MG TAB PO SCH (08:54)
[2021-07-26] MEDS: Furosemide 40 MG/4 ML VIAL SLOW IVP SCH ×2 (08:54→20:45)
[2021-07-26] MEDS: Metolazone 5 MG TAB PO SCH (08:54)
[2021-07-26] MEDS: Enoxaparin Sodium 120 MG/0.8 ML SYRINGE SC SCH ×2 (08:55→20:46)
[2021-07-26] MEDS: Carvedilol 6.25 MG TAB PO SCH ×2 (08:55→20:44)
[2021-07-26] MEDS: Spironolactone 25 MG TAB PO SCH (08:56)
[2021-07-27 05:30] LABS: Hemoglobin 14.7 g/dL (14.0-18.0); Platelet Count 215 thou/uL (130-400)
[2021-07-27 05:32] LABS: INR-International Normal Ratio 1.2; Prothrombin Time 14.9 sec (12.0-14.7)
[2021-07-27 05:56] LABS: Anion Gap 15 mmol/L (10-20); BUN (Urea Nitrogen) 19 mg/dL (8.4-25.7); Calc. Creatinine Clearance 84 mL/min (70-130); Calcium 10.1 mg/dL (7.8-10.44); Carbon Dioxide 33 mmol/L (23-31); Chloride 91 mmol/L (98-107); Glucose 131 mg/dL (83-110); Sodium 135 mmol/L (136-145)
[2021-07-27] MEDS: Digoxin 0.25 MG TAB PO SCH (08:13)
[2021-07-27] MEDS: Spironolactone 25 MG TAB PO SCH (08:13)
[2021-07-27] MEDS: Enoxaparin Sodium 120 MG/0.8 ML SYRINGE SC SCH (08:13)
[2021-07-27] MEDS: Carvedilol 6.25 MG TAB PO SCH ×3 (08:13→20:18)
[2021-07-27] MEDS: Metolazone 5 MG TAB PO SCH (08:13)
[2021-07-27] MEDS: Potassium Chloride 20 MEQ TAB PO SCH ×2 (08:13→15:29)
[2021-07-27] MEDS: Furosemide 40 MG/4 ML VIAL SLOW IVP SCH ×2 (08:14→20:20)
[2021-07-27] MEDS: HumaLOG 300 UNITS/3 ML VIAL SC PRN ×2 (11:58→17:43)
[2021-07-27] MEDS: Enoxaparin Sodium 100 MG/ML SYRINGE SC SCH (20:19)
[2021-07-27 22:42] LABS: SARS-CoV-2 PCR by NAA Not Detected (NotDetected)
[2021-07-28 05:21] LABS: INR-International Normal Ratio 1.1; Prothrombin Time 14.8 sec (12.0-14.7)
[2021-07-28 05:26] LABS: Anion Gap 17 mmol/L (10-20); BUN (Urea Nitrogen) 26 mg/dL (8.4-25.7); Calc. Creatinine Clearance 75 mL/min (70-130); Calcium 10.1 mg/dL (7.8-10.44); Carbon Dioxide 27 mmol/L (23-31); Chloride 92 mmol/L (98-107); Glucose 209 mg/dL (83-110); Potassium 4.2 mmol/L (3.5-5.1); Sodium 132 mmol/L (136-145)
[2021-07-28] MEDS: HumaLOG 300 UNITS/3 ML VIAL SC PRN ×2 (06:01→11:40)
[2021-07-28] MEDS: Furosemide 40 MG/4 ML VIAL SLOW IVP SCH ×2 (08:34→22:27)
[2021-07-28] MEDS: Digoxin 0.25 MG TAB PO SCH (08:35)
[2021-07-28] MEDS: Carvedilol 6.25 MG TAB PO SCH ×3 (08:35→22:27)
[2021-07-28] MEDS: Enoxaparin Sodium 100 MG/ML SYRINGE SC SCH ×2 (08:35→22:28)
[2021-07-28] MEDS: Potassium Chloride 20 MEQ TAB PO SCH ×2 (08:35→16:18)
[2021-07-28] MEDS: Spironolactone 25 MG TAB PO SCH (08:35)
[2021-07-28] MEDS: Metolazone 5 MG TAB PO SCH (08:35)
[2021-07-29] MEDS: HumaLOG 300 UNITS/3 ML VIAL SC PRN ×2 (05:50→11:36)
[2021-07-29 06:09] LABS: Anion Gap 18 mmol/L (10-20); BUN (Urea Nitrogen) 27 mg/dL (8.4-25.7); Calc. Creatinine Clearance 77 mL/min (70-130); Calcium 9.9 mg/dL (7.8-10.44); Carbon Dioxide 26 mmol/L (23-31); Chloride 93 mmol/L (98-107); Glucose 141 mg/dL (83-110); Potassium 4.4 mmol/L (3.5-5.1); Sodium 133 mmol/L (136-145)
[2021-07-29] MEDS: Digoxin 0.25 MG TAB PO SCH (09:55)
[2021-07-29] MEDS: Furosemide 40 MG/4 ML VIAL SLOW IVP SCH ×2 (09:55→20:44)
[2021-07-29] MEDS: Spironolactone 25 MG TAB PO SCH (09:55)
[2021-07-29] MEDS: Potassium Chloride 20 MEQ TAB PO SCH ×2 (09:55→16:35)
[2021-07-29] MEDS: Enoxaparin Sodium 100 MG/ML SYRINGE SC SCH ×2 (09:55→10:05)
[2021-07-29] MEDS: Carvedilol 6.25 MG TAB PO SCH ×3 (09:56→20:44)
[2021-07-29] MEDS: Metolazone 5 MG TAB PO SCH (09:56)
[2021-07-29 15:31] VITALS: BMI 26.6
[2021-07-30 04:41] LABS: Hemoglobin 14.1 g/dL (14.0-18.0); Platelet Count 240 thou/uL (130-400)
[2021-07-30 05:00] LABS: Anion Gap 16 mmol/L (10-20); BUN (Urea Nitrogen) 30 mg/dL (8.4-25.7); Calc. Creatinine Clearance 71 mL/min (70-130); Calcium 10.1 mg/dL (7.8-10.44); Carbon Dioxide 27 mmol/L (23-31); Chloride 95 mmol/L (98-107); Glucose 140 mg/dL (83-110); Potassium 4.2 mmol/L (3.5-5.1); Sodium 134 mmol/L (136-145)
[2021-07-30] MEDS: Potassium Chloride 20 MEQ TAB PO SCH (05:49)
[2021-07-30] MEDS: Carvedilol 6.25 MG TAB PO SCH ×3 (05:49→20:09)
[2021-07-30] MEDS: Digoxin 0.25 MG TAB PO SCH (05:49)
[2021-07-30] MEDS ORDERED: Sodium Chloride 0.9% 1,000 ML IV SCH ×2 (06:00→08:40)
[2021-07-30] MEDS ORDERED: Communication Order-Pharmacy FS SCH (06:00)
[2021-07-30] MEDS ORDERED: Heparin 10,000 UNITS/ 10 ML VIAL ONE (06:12)
[2021-07-30] MEDS ORDERED: Fentanyl 100 MCG/2 ML VIAL ONE (06:57)
[2021-07-30] MEDS ORDERED: Midazolam HCl 2 mg/2 ml Vial ONE (06:58)
[2021-07-30] MEDS ORDERED: Protamine Sulfate 50 MG/5 ML VIAL ONE (08:00)
[2021-07-30] MEDS ORDERED: Sodium Chloride 0.9% 200 ML IV PRN (08:39)
[2021-07-30] MEDS ORDERED: Nitroglycerin 0.4 MG TAB (25 Tab Bottle) SL PRN (08:39)
[2021-07-30] MEDS ORDERED: Acetaminophen/Codeine 30-300mg Tablet PO PRN ×2 (08:39)
[2021-07-30] MEDS: Metolazone 5 MG TAB PO SCH (08:49)
[2021-07-30] MEDS: Spironolactone 25 MG TAB PO SCH (08:49)
[2021-07-30] MEDS ORDERED: Iopamidol 370 76% 100 ML VIAL ONE (12:58)
[2021-07-30] MEDS: HumaLOG 300 UNITS/3 ML VIAL SC PRN (17:39)
[2021-07-30 20:10] VITALS: BP 106/65
[2021-07-30 22:34] VITALS: TEMP 97.9
[2021-07-31] MEDS ORDERED: Spironolactone 25 MG TAB PO SCH (08:00)
[2021-07-31] MEDS ORDERED: Potassium Chloride 20 MEQ TAB PO SCH (08:00)
[2021-07-31] MEDS ORDERED: Furosemide 40 MG TAB PO SCH (09:00)
[2021-07-31] MEDS ORDERED: Furosemide 20 MG TAB PO SCH (09:00)
[2021-08-01] MEDS ORDERED: Enoxaparin Sodium 80 MG/0.8 ML SYRINGE SC SCH (09:00)
== END 2021-07-30 22:55 | disposition short-term general hospital (02) | DRG 280 ==
LOC: ERS 20:41 → CCU 22:33 → 2NO 07-21 18:27
PROVIDERS: ADMIT Student in an Organized Health Care Education/Training Program; ATTEND Family Medicine
PROC: 4A023N8 Measurement of Cardiac Sampling and Pressure, Bilateral, Percutaneous Approach (ICD-10-PCS; principal; 2021-07-20)
PROC: B2121ZZ Fluoroscopy of Single Coronary Artery Bypass Graft using Low Osmolar Contrast (ICD-10-PCS; 2021-07-20)
PROC: B2181ZZ Fluoroscopy of Left Internal Mammary Bypass Graft using Low Osmolar Contrast (ICD-10-PCS; 2021-07-20)
PROC: B2111ZZ Fluoroscopy of Multiple Coronary Arteries using Low Osmolar Contrast (ICD-10-PCS; 2021-07-20)
PROC: B2161ZZ Fluoroscopy of Right and Left Heart using Low Osmolar Contrast (ICD-10-PCS; 2021-07-20)
PROC: 4A033BC Measurement of Arterial Pressure, Coronary, Percutaneous Approach (ICD-10-PCS; 2021-07-20)
DX: I13.0 Hypertensive heart and chronic kidney disease with heart failure and stage 1 through stage 4 chronic kidney disease, or unspecified chronic kidney disease (principal); I50.43 Acute on chronic combined systolic (congestive) and diastolic (congestive) heart failure; I48.20 Chronic atrial fibrillation, unspecified; I21.A1 Myocardial infarction type 2; E87.2 Acidosis; D68.32 Hemorrhagic disorder due to extrinsic circulating anticoagulants; N17.9 Acute kidney failure, unspecified; I82.419 Acute embolism and thrombosis of unspecified femoral vein; I42.9 Cardiomyopathy, unspecified; Z20.822 Contact with and (suspected) exposure to COVID-19; R79.89 Other specified abnormal findings of blood chemistry; E80.6 Other disorders of bilirubin metabolism; T45.515A Adverse effect of anticoagulants, initial encounter; E87.6 Hypokalemia; I25.10 Atherosclerotic heart disease of native coronary artery without angina pectoris; E11.22 Type 2 diabetes mellitus with diabetic chronic kidney disease; N18.30 Chronic kidney disease, stage 3 unspecified; I35.0 Nonrheumatic aortic (valve) stenosis; E78.00 Pure hypercholesterolemia, unspecified; E66.9 Obesity, unspecified; Z79.01 Long term (current) use of anticoagulants; Z79.84 Long term (current) use of oral hypoglycemic drugs; Z79.82 Long term (current) use of aspirin; Z79.899 Other long term (current) drug therapy; Z91.19 Patient's noncompliance with other medical treatment and regimen; I25.2 Old myocardial infarction; Z95.5 Presence of coronary angioplasty implant and graft; Z95.1 Presence of aortocoronary bypass graft; Z87.891 Personal history of nicotine dependence; Z95.2 Presence of prosthetic heart valve; Z86.718 Personal history of other venous thrombosis and embolism; Z86.711 Personal history of pulmonary embolism; Z68.35 Body mass index [BMI] 35.0-35.9, adult
CPT/HCPCS: 0240U; 36415; 36416; 71045; 80048; 80053; 80061; 80162; 82550; 82553; 83605; 83735; 83880; 84443; 84484; 85014; 85018; 85025; 85049; 85347; 85379; 85610; 85730; 93005; 93306; 93461; 93798; 93970; 96365; 96366; 96368; 96375; 96376; 99152; 99153; C9113; J0692; J1160; J1644; J1650; J1815; J1940; J2250; J2720; J3010; J3370; J3430; J3490; J7050; Q9967; U0003; U0005